=== PATIENT | male | born 1950 | race Caucasian/White ===

== ENCOUNTER 2019-01-10 00:42 | Inpatient (IN) | payer MEDICARE ==
[2019-01-10 02:04] LABS: ALT (SGPT) 23 U/L (8-55); AST (SGOT) 48 U/L (5-34); Albumin 2.9 g/dL (3.4-4.8); Alkaline Phosphatase 369 U/L (40-150); Anion Gap 12 mmol/L (10-20); BUN (Urea Nitrogen) 13 mg/dL (8.4-25.7); Bilirubin, Total 1.3 mg/dL (0.2-1.2); Calc. Creatinine Clearance 0 mL/min (70-130); Calcium 8.2 mg/dL (7.8-10.44); Carbon Dioxide 21 mmol/L (23-31); Chloride 101 mmol/L (98-107); Estimated GFR-MDRD Greater than 90; Globulin 2.5 g/dL (2.4-3.5); Glucose 126 mg/dL (80-115); Protein, Total 5.4 g/dL (5.8-8.1); Sodium 130 mmol/L (136-145)
[2019-01-10 02:16] LABS: #Lymphocytes 0.3 thou/uL (1.20-3.40); #Monocytes 0.2 thou/uL (0.11-0.59); #Neutrophils 1.1 thou/uL (1.40-6.50); %Basophils 1.3 % (0.0-1.0); %Eosinophils 0.2 % (0.0-10.0); %Lymphocytes 20.7 % (21.0-51.0); %Monocytes 9.2 % (0.0-10.0); %Neutrophils 68.6 % (42.0-75.0); Anisocytosis SLIGHT = 6-15 cells (100X) (0-5/hpf); Hemoglobin 10.4 g/dL (14.0-18.0); MDiff Complete? YES; Mean Corpuscular HGB CONC 32.5 g/dL (32.0-36.0); Mean Corpuscular Hemoglobin 27.1 pg (27.0-31.0); Mean Corpuscular Volume 83.5 fL (78.0-98.0); Mean Platelet Volume 9.9 fL (7.4-10.4); Platelet Count 54 thou/uL (130-400); Platelet Morphology Comment Appears Decreased; RBC Distribution Width 16.3 % (11.5-14.5); Red Blood Cell (RBC) Count 3.85 mill/uL (4.70-6.10); Reflex for Review?? YES; White Blood Cell (WBC) Count 1.6 thou/uL (4.8-10.8)
[2019-01-10 02:38] LABS: Bilirubin Negative (Negative); Blood, Urine Negative (Negative); Clarity CLEAR (Clear); Glucose, Urine (Dipstick) Negative (Negative); Leukocyte Negative (Negative); Nitrite Negative (Negative); Protein, Urine (Dipstick) Negative (Neg-Trace); Specific Gravity, Urine 1.009 (1.002-1.036)
[2019-01-10] MEDS ORDERED: Dextrose 50% Abboject 50 ML SYRINGE SLOW IVP PRN (03:06)
[2019-01-10] MEDS ORDERED: Ondansetron PF 4 MG/2 ML Vial IVP PRN ×2 (03:06→03:07)
[2019-01-10] MEDS ORDERED: Bisacodyl 5 MG TAB PO PRN (03:06)
[2019-01-10] MEDS ORDERED: Acetaminophen 325 MG TAB PO PRN (03:06)
[2019-01-10] MEDS ORDERED: Dextrose 5% in Water 1,000 ML IV PRN (03:06)
[2019-01-10] MEDS ORDERED: Senokot S 8.6-50 MG TAB PO PRN (03:06)
[2019-01-10] MEDS ORDERED: HYDROcodone/Acetaminophen 5/325 mg Tablet PO PRN (03:06)
[2019-01-10] MEDS ORDERED: hydrALAZINE 20 MG/ML VIAL SLOW IVP PRN (03:07)
[2019-01-10] MEDS ORDERED: Diabetic Tussin 200 MG/10 ML UDCUP PO PRN ×2 (03:07→08:53)
[2019-01-10] MEDS ORDERED: cloNIDine 0.1 MG TAB PO PRN (03:07)
[2019-01-10] MEDS ORDERED: Benzonatate 100 MG CAP PO PRN (03:07)
[2019-01-10] MEDS ORDERED: Sodium Chloride 0.65% Nasal 44 ML BOT EA NARE PRN (03:07)
[2019-01-10] MEDS ORDERED: Fentanyl 100 MCG/2 ML VIAL ONE ×2 (03:18→03:21)
[2019-01-10 04:37] VITALS: BMI 21.7
[2019-01-10] MEDS: Morphine 4 MG/ML VIAL SLOW IVP PRN ×4 (04:37→20:00)
--- NOTE | 2019-01-10 05:05 | HP ---
PRIMARY CARE PHYSICIAN: . CHIEF COMPLAINT: Generalized weakness and falls. HISTORY OF PRESENTING ILLNESS: Mr. Demarco is a 68-year-old male with past medical history of protein S deficiency, on anticoagulation with history of pulmonary embolism x5, and multiple arterial occlusion requiring multiple stents including 11 coronary stents and 29 stents elsewhere in the body including legs as well as history of hepatitis C, status post treatment: Presented to the emergency room with above-mentioned complaints. History is mainly obtained by the patient himself and also with the help of his present at the bedside. Case has been discussed with admitting ER physician, Dr. Joy. Mr. Demarco was admitted recently to the [facility] in [place] for 3 weeks and was discharged 3 or 4 days ago to home with Home Health. He was admitted there for generalized body aches and pains, abdominal swelling, weight loss, poor appetite, and worsening weakness for the last 2 or 3 months. He has not been feeling well for the last year or so. He follows up with Dr. Jolly at [facility] for his cardiac and arterial disease and recently has been feeling poorly. Over at [facility]: Extensive workup was instituted. I do not have access to the medical records, but the reports that the workup included the liver biopsy and a bone marrow biopsy. There was no specific diagnosis made as most of his tests came back okay. He was noticed to have pancytopenia over there, but so far the workup was unremarkable. He was given referral to Oncology in the outpatient setting and was discharged home. Shortly after getting home, he got more and more weak and started to fall. They were supposed to see Oncology, Dr. Thurston, tomorrow, but because of the falls and because of the 's inability to take care of him at home, she brought him here. He also has been having generalized pain once again, mostly in the upper and lower back, shoulders, and abdomen. Denies any diarrhea, nausea, or vomiting. He did have a fever of 102 this morning and reports on and off low- to high-grade fevers for the last few weeks. With regard to his anticoagulation: The reports that somebody told them that Eliquis that the patient was taking: Can cost some of his symptoms, so they contacted his doctor and it was recently changed to a different anticoagulant that she does not remember the name of. Now, he is being admitted for further evaluation and care. In the emergency room upon presentation, he was hemodynamically stable. His workup revealed pancytopenia with CBC showing WBCs of 1.6 with 68% neutrophils. Hemoglobin 10.4, platelet count of 54. These are all abnormal compared to his baseline done in our facility in 2014. His serum chemistry showed mild hyponatremia with a sodium of 130, total bilirubin of 1.3, AST of 48, and alkaline phosphatase of 369. His lactic acid, urinalysis are unremarkable. Chest x-ray and CT scan of the brain are unremarkable. PAST MEDICAL HISTORY: 1. Coronary artery disease requiring multiple stents by Dr. Jolly in the past. 2. Peripheral vascular disease requiring 11 stents in the legs. 3. History of COPD. 4. Pulmonary embolism x5, on chronic anticoagulation. 5. Dyslipidemia. 6. Osteoarthritis. 7. Hypertension. 8. Protein S deficiency. 9. History of splenic hematoma. 10. History of alcohol and drug abuse in the past. 11. Hepatitis C, status post treatment. PAST SURGICAL HISTORY: 1. L2-L4 fusion, 1972. 2. IVC filter placement, 2012. 3. Right femoral-popliteal bypass x2. 4. Right small toe amputation. 5. Hernia repair. 6. Coronary stenting x11, and rest of the stents placed in the legs. PSYCHIATRIC HISTORY: Anxiety. SOCIAL HISTORY: He is and lives at home with . No current alcohol or drug abuse. FAMILY HISTORY: No family history of any clotting or bleeding disorders or cancers. Brother with hypertension and diabetes. ALLERGIES: INCLUDES NITROGLYCERIN, ULTRAM, PERSANTINE, CHANTIX, AND LATEX ALLERGIES. HOME MEDICATIONS: As listed in the emergency room and further needs to be confirmed. 1. Guaifenesin p.r.n. 2. Folic acid 1 mg daily. 3. Megestrol 400 b.i.d. 4. MiraLAX p.r.n. daily. 5. Propranolol 10 mg three times a day. 6. Sertraline 50 mg daily. 7. Aldactone 25 mg daily. 8. Amlodipine 10 mg daily. 9. Plavix 75 mg daily. 10. Gabapentin 300 mg t.i.d. 11. Cozaar 50 mg daily. 12. Finasteride 5 mg daily. 13. Protonix 40 mg daily. 14. Tamsulosin 0.4 mg daily. CODE STATUS: Full code discussed in detail with the patient and his . REVIEW OF SYSTEMS: A 14-point review of system is done, it is negative except for those mentioned in the history and physical. All others are negative. LABORATORY DATA: CBC as per the HPI. Serum chemistry as per the HPI, otherwise unremarkable. Urinalysis does not have any evidence of any infection. EKG by my review shows normal sinus rhythm at 74 beats per minute with some PACs and aberrant conduction. No acute ST or T-wave changes. Chest x-ray by my review shows chronic right diaphragm changes without any acute infiltrate or edema. CT scan of the brain reportedly is unremarkable. Formal report is pending at this time. PHYSICAL EXAMINATION: VITAL SIGNS: Blood pressure 120/60, pulse of 77, respirations 18, temperature 98.5, saturating 97% on room air. GENERAL: He appears chronically ill looking and severely malnourished with poor muscle wasting. No acute distress. He appears somewhat pale and jaundiced. HEENT: Mucous membrane is dry. He has appearance of sore tongue and sore gums. He has no evidence of telangiectasias or petechiae on the oral or buccal mucosa. No oropharyngeal exudate. Temporal muscle wasting noted. Pupils are equal and reactive to light and accommodation. Extraocular movement intact. NECK: Supple without any lymphadenopathy, JVD, or bruit. CHEST: Clear to auscultation without any wheezing, rales, or rhonchi. HEART: Rhythm is regular without any murmurs, rubs, or gallops. ABDOMEN: Mildly distended and tender to palpation in the periumbilical region. No fluid wave is noticed. No spider nevi. No guarding, rebound, or rigidity. EXTREMITIES: Free of any cyanosis, clubbing, or edema. NEUROLOGIC: Nonfocal. SKIN: Free of any rashes or bruises except for some petechiae noted in his legs. PSYCHIATRIC: Normal affect. IMPRESSION AND PLAN: 1. Pancytopenia. The patient has had extensive workup done at [facility]. We will get his records from the [facility] in the morning. He is scheduled to see Oncology in the outpatient setting today and we will request consultation with Oncology in house. We will follow up on the results of the bone marrow biopsy done over at [facility]. At this time, etiology is unclear, but carcinoma versus bone marrow suppression from any of the medications he has been taking with his history of hepatitis C is not ruled out. We will hold his anticoagulation for now, but he remains at very high risk for clotting given his protein S deficiency. We will use subcu heparin for now with close monitoring of his platelets. Repeat labs in the morning. 2. Elevated liver enzymes. Once again, we will get his records from the [facility] as he has had good workup done over there including liver biopsy. Cirrhosis cannot be ruled out from hepatitis C. Also, liver carcinoma will need to be ruled out. I am not sure if that was also done over at [facility]. We will consult Oncology for further evaluation. 3. Generalized weakness and frequent falls. We will request OT and PT consultation. The patient will likely require placement prior to discharge home. 4. Severe protein calorie malnutrition. We will start him on Ensure three times a day and continue megestrol for now. We will also consult a dietitian for the same. 5. History of protein S deficiency. At this time, we will hold his anticoagulation until seen by Hematology Oncology. Use subcu heparin for DVT prophylaxis. Monitor platelets as they are running low. He is at very high risk of clotting as well as bleeding because of low platelets and protein S deficiencies. 6. History of coronary artery disease. Restart his home medications once confirmed. 7. History of peripheral arterial disease requiring multiple stents. This is likely secondary to protein S deficiency and arterial clotting. We will resume his aspirin and Plavix with caution for now. 8. Diabetes mellitus type 2. We will start him on insulin sliding scale with frequent Accu-Cheks. 9. History of hepatitis C, status post treatment. 10. Deep venous thrombosis and gastrointestinal prophylaxis and p.r.n. medications. DISPOSITION: Mr. Demarco is currently being admitted to Oncology floor for further workup of his pancytopenia and continued workup of his chronic mysterious illness from last 1 year. Estimated length of stay at this time is at least 2-3 midnights. Further management will depend upon his clinical course. Job ID: [id number]
[2019-01-10] MEDS: Sodium Chloride 0.9% 1,000 ML IV SCH ×2 (06:26→14:20)
[2019-01-10 06:41] LABS: Anion Gap 14 mmol/L (10-20); BUN (Urea Nitrogen) 11 mg/dL (8.4-25.7); Calc. Creatinine Clearance 97 mL/min (70-130); Calcium 8.3 mg/dL (7.8-10.44); Carbon Dioxide 20 mmol/L (23-31); Chloride 103 mmol/L (98-107); Estimated GFR-MDRD Greater than 90; Glucose 201 mg/dL (80-115); Potassium 3.5 mmol/L (3.5-5.1); Sodium 133 mmol/L (136-145)
--- NOTE | 2019-01-10 08:23 | CT ---
PRELIMINARY REPORT/[facility]/EMERGENCY AFTER HOURS PROCEDURE: Addendum created by Gerardo Urbina MD on 01/10/2019 4:04 AM Central Time ([place] & [place]) Findings discu ssed with ECTOR HOOKS MD at time of interpretation. Initial Report created on 01/10/2019 3:49 AM Ce ntral Time ([place] & [place]) EXAM: CT Head Without Contrast EXAM DATE/TIME: 01/10/2019 3:00 AM CLINICAL HISTORY: 68 years old, male; Injury or trauma; Fall; Initial encounter; Blunt trauma (contusions or hematomas) ; Patient HX: reports patient discharge from [facility] 2 days ago. She reports he has been admitted t here for the past 3 weeks due to abdominal distention, weakness and multiple falls. She reports awaiting biopsy results for possible cancer. She reports patient falling due to weakness twice today. PT reports right sided rib pain from fall. PT denies hitting head or head pain. reports fever 1 02 this evening TECHNIQUE: Imaging protocol: Axial computed tomography images of the head/brain without contrast. COMPARISON: No relevant prior studies available. FINDINGS: Brain: Mild generalized volume loss of the brain. No intracranial hemorrhage. Small area of decreased attenuation in the periphery of the left occipital lobe could be encephalomalacia/gliosis or a small area of nonspecific edema (subacute infarction or not visualized underlying mass lesion). Ventricles: Normal. No ventriculomegaly. Bones/joints: Unremarkable. No acute fracture. Sinuses: Dependent mucus in the sphenoid sinus. No sinus fluid levels. Mastoid air cells: Visualized mastoid air cells are unremarkable. No mastoid effusion. Soft tissues: Unremarkable. IMPRESSION: Small area of decreased attenuation in the periphery of the left occipital lobe could be encephalomal acia/gliosis or a small area of nonspecific edema (subacute infarction or not visualized underlying m ass lesion). Recommend comparison with any available prior studies. No intracranial hemorrhage. Thank you for allowing us to participate in the care of your patient. Dictated and Authenticated by: Gerardo Urbina MD 01/10/2019 3:49 AM Central Time ([place] & [place]) FINAL REPORT EMERGENCY AFTER HOURS CT BRAIN PERFORMED WITHOUT CONTRAST ENHANCEMENT: Date: 01/10/19 HISTORY: Fall with patient hitting head. Complaining of headache. COMPARISON: 02/16/12. FINDINGS: Ventricular and cisternal system shows fairly age-appropriate change. There are no signs of intracere bral hemorrhage or extra-axial fluid collections. There is a subtle area of decreased attenuation in the left occipital lobe, not seen on the prior exam. It could indicate encephalomalacia change. It co uld also possibly indicate small subacute infarct. There is no hemorrhage or mass effect. IMPRESSION: Subtle focus of decreased attenuation in the left occipital lobe, slightly different in appearance fr om the prior exam. I cannot exclude this representing a small subacute infarct, although I think it i s more likely to be more of a chronic process. No hemorrhage or mass effect. If indicated, MRI may be helpful. This report is in agreement with the preliminary report issued by [facility]. POS: [facility]
--- NOTE | 2019-01-10 08:23 | RAD ---
PORTABLE CHEST: Comparison: 02-16-12 History: Multiple falls with right rib pain. FINDINGS: Heart size is within normal limits. There are some arthrosclerotic changes of the aorta. Some parench ymal changes in the right base appear slightly more prominent than on that previous study suggesting some atelectasis versus scar versus minimal infiltrate. There are chronic appearing emphysematous typ e lung changes seen. I do not see any signs of pneumothorax or rib fractures. IMPRESSION: Increased parenchymal density in the right base which could represent atelectasis or scar or possibly some minimal infiltrate. Less likely, a pulmonary contusion. No rib fracture is seen. POS: [facility]
[2019-01-10] MEDS ORDERED: Polyethylene Glycol 3350 17 GM Packet PO PRN (08:53)
[2019-01-10] MEDS ORDERED: Heparin 5,000 UNITS/ML VIAL SC SCH (09:00)
--- NOTE | 2019-01-10 10:20 | PRG ---
DATE OF SERVICE: 01/10/2019 SUBJECTIVE: The patient reports he is having significant pain today, mostly in his back. I discussed this situation with the patient and his . He is obviously a highly complicated medical patient, who has just spent 3 weeks at the [facility]. The patient has had slow decline over the last year. His reports his appetite has been falling off and it has become substantially worse in the last 3 months. They report he has lost about 60 pounds during that time. The patient had an extensive workup at the [facility] and their thinking was that he likely had some sort of underlying malignancy that was not elucidated fully. The patient was ultimately discharged to have followup as an outpatient with Oncology today. However, they were told to watch for any fever at the time of discharge, and they reported that he had over 102 temperature and was so profoundly weak that he could not get up, so they brought him back to the hospital. The patient had some falls at home as well, had some discomfort in his right upper quadrant area, which he relates to the fall. PHYSICAL EXAMINATION: GENERAL: Currently, he is awake and alert. He appears uncomfortable. HEENT: His mouth is dry. HEART: Regular rate and rhythm. LUNGS: Clear. ABDOMEN: He does have some tenderness in the right upper quadrant area. His reports that his imaging at the [facility] did indicate some hepatosplenomegaly as well as some enlargement of the gallbladder. He has no peripheral edema, although they report that he has had severe peripheral edema recently. His labs were reviewed. He does have pancytopenia. They report that he had a bone marrow biopsy at the [facility] which revealed profound iron deficiency, although he is not significantly anemic and his MCV is actually within the normal range. At this point, attempting to get records from the [facility] as the patient obviously had an extensive evaluation over there. We will continue his home medications. However, we will hold the Savaysa. They report that he had previously been on Eliquis and this was discontinued because of the elevated liver enzymes and pancytopenia. He has only been on the Savaysa for a couple of days now. We will await consultation by Dr. Thurston. We will also ask Dr. Loja to see the patient given the overall picture and the fever in the setting of pancytopenia. It is possible this could represent some type of viral issue. The patient's history is complicated by severe systemic vascular disease and protein S deficiency. We will hold the Savaysa as well and continue with heparin for now, and await Oncology's input. In the meantime, we will continue with the Pain Management. Job ID: [id number]
[2019-01-10] MEDS: Heparin 5,000 UNITS/ML VIAL SC SCH ×3 (10:41→20:50)
[2019-01-10] MEDS: Famotidine 20 MG TAB PO SCH ×2 (10:42→20:51)
[2019-01-10] MEDS: Megestrol Acetate 800 MG/20 ML UDCUP PO SCH ×2 (11:28→20:52)
[2019-01-10] MEDS: Amlodipine 10 MG TAB PO SCH (11:30)
[2019-01-10] MEDS: Gabapentin 300 MG CAP PO SCH ×3 (11:30→20:51)
[2019-01-10] MEDS: Tamsulosin HCl 0.4 MG CAP PO SCH (11:30)
[2019-01-10] MEDS: Clopidogrel Bisulfate 75 MG TAB PO SCH (11:31)
[2019-01-10] MEDS: Finasteride 5 MG TAB PO SCH (11:31)
[2019-01-10] MEDS: Folic Acid 1 MG TAB PO SCH (11:31)
[2019-01-10] MEDS: Propranolol 10 MG TAB PO SCH ×3 (11:32→20:48)
[2019-01-10 11:53] LABS: Iron 30 ug/dL (65-175); Iron Binding Capacity, Total 229 mcg/dL (261-462)
[2019-01-10] MEDS ORDERED: ALPRAZolam 0.25 MG TAB PO SCH (12:00)
[2019-01-10] MEDS: Losartan 25 MG TAB PO SCH (12:06)
[2019-01-10] MEDS ORDERED: Morphine 2 MG/ML SYRINGE SLOW IVP SCH (12:30)
[2019-01-10] MEDS: HYDROcodone/Acetaminophen 10/325 mg Tablet PO PRN ×3 (13:30→21:32)
--- NOTE | 2019-01-10 13:47 | CON ---
DATE OF CONSULTATION: 01/10/2019 REASON FOR CONSULT: Pancytopenia. HISTORY OF PRESENT ILLNESS: Mr. Demarco is a 68-year-old gentleman with a complicated medical history including peripheral vascular disease, protein S deficiency, coronary artery disease, chronic obstructive pulmonary disease, diabetes, and hepatitis C. He was recently discharged from the [facility] after a 3- week stay, where he underwent workup for weight loss, weakness, and bone pain. He has seen multiple providers and gone under through several tests, which have been negative including negative SPEP HIV, negative HBV and HCV, negative AFP, normal immunoglobulin. He has had a splenomegaly. He has had a bone marrow, which was hypercellular and showed decreased to absent iron stores. There was no conclusive evidence for neoplastic leukocyte population. He underwent a liver biopsy, which showed no dysplasia or malignancy, showed grade 1 to 2 of four chronic hepatitis. He has had symptoms for over year, which have progressed over the last 5 weeks. He has been taking Eliquis for over a year now. It was recently stopped [address] Jolly and he was placed on Sevista. He was discharged from the [facility] on Monday and developed a fever of 102, so presented to our emergency room for further workup. His brain CT showed no acute findings. He has had a chest x-ray, which showed no acute changes. His white count this morning was 1.6 with 68% neutrophils and 20 % lymphocytes. Hemoglobin was 10.4 and platelet count was 54,000. Sodium was 130 , creatinine was 0.67. His bilirubin was mildly elevated and his protein was low. He was given pain medications, but still complains of bone pain including low back pain and leg. He complains of weakness, abdominal distention, and poor appetite. PAST MEDICAL HISTORY: 1. Peripheral vascular disease. 2. Coronary artery disease. 3. Myocardial infarction. 4. Carotid artery disease. 5. Transient ischemic attack. 6. Chronic obstructive pulmonary disease. 7. Diabetes. 8. BPH. 9. Protein S deficiency. 10. Chronic hepatitis C. 11. IV drug use. 12. Hepatosplenomegaly. 13. Chronic diastolic dysfunction. 14. History of pulmonary embolism with inferior vena cava placement. PAST SURGICAL HISTORY: 1. Hernia repair. 2. Bilateral femoral bypass. 3. Toe amputation. 4. Spinal fusion. 5. Cervical fusion. 6. Cardiac stents. 7. Multiple lower extremity stents. 8. Colonoscopy. ALLERGIES: NO KNOWN DRUG ALLERGIES. HOME MEDICATIONS: 1. Amlodipine 10 mg daily. 2. Plavix 75 mg daily. 3. Edoxoban 60 mg daily. 4. Proscar 5 mg daily. 5. Folic acid 1 mg daily. 6. Gabapentin 300 mg t.i.d. 7. Losartan 50 mg daily. 8. Megestrol 400 mg b.i.d. 9. Protonix daily. 10. MiraLAX daily. 11. Propranolol 10 mg t.i.d. 12. Zoloft 50 mg daily. 13. Aldactone 25 mg daily. 14. Flomax daily. FAMILY HISTORY: Father had lung cancer. Mother had heart failure. SOCIAL HISTORY: , lives with his spouse in [place]. History of IV drug use. REVIEW OF SYSTEMS: Negative except for noted in HPI. PHYSICAL EXAMINATION: VITAL SIGNS: Temperature is 99.4, pulse is 89, respiratory rate 20, BP is 152/ 69. He is 96% on 1 L. GENERAL: This is a chronically ill-appearing, cachectic male, in mild pain. HEENT: Normocephalic, atraumatic. Pupils are equal and reactive to light. NECK: Supple. CV: Regular rate and rhythm. LUNGS: Clear. ABDOMEN: Distended. Bowel sounds are positive. EXTREMITIES: No clubbing, cyanosis, or edema. SKIN: No rash. HEMATOLOGICAL: He has bruising in his upper extremities and chronic skin changes. NEUROLOGICAL: Nonfocal. PSYCH: The patient is alert, oriented and appropriate. PERTINENT LABS AND X-RAYS: Current WBCs 1.6, hemoglobin 10.4, hematocrit 32.1, and platelet count 54,000. Peripheral smear showed absolute lymphopenia and neutropenia. Chemistry; sodium 133, potassium 3.5, chloride 103, CO2 is 20, BUN is 11, creatinine 0.67, calcium is 8.3, bilirubin is 1.3, AST is 48, ALT is 23, alkaline phosphatase is 369. Serum total protein 5.4, albumin 2.9, globulin 2.5. Urine is negative. ASSESSMENT: 1. Pancytopenia. 2. Hepatosplenomegaly. 3. Protein S deficiency. 4. Failure to thrive with weight loss, weakness, and fever. 5. Negative bone marrow and liver biopsy. DISCUSSION: The patient is getting pain control, managed by [facility]. Dr. Loja has been consulted for his assistance with a diagnosis. There appears to be no evidence of hematological malignancy. To be completed, will check a NM bone scan. This was discussed with Dr. Dinero and Dr. Thurston, one of which will follow and see the patient later today. Further recommendations based on findings here in the hospital. Thank you for the consult. Job ID: [id number] [id number]
[2019-01-10] MEDS: Iron Sucrose Complex 500 MG in Sodium Chloride 0.9% 250 ML 250 ML IVPB SCH (18:28)
[2019-01-11] MEDS: HYDROcodone/Acetaminophen 10/325 mg Tablet PO PRN ×5 (01:33→22:16)
[2019-01-11] MEDS ORDERED: Mirtazapine 15 MG TAB PO SCH (02:00)
--- NOTE | 2019-01-11 02:18 | CON ---
DATE OF CONSULTATION: 01/10/2019 REASON FOR CONSULTATION: Pancytopenia, splenomegaly with chronic liver disease and fever. HISTORY OF PRESENT ILLNESS: A 68-year-old who has a history of multiple vascular occlusive episodes, which have required extraordinary number of vascular interventions with reportedly 25 stenting procedures done, I believe that was in the [facility] of various arterial systems including the peripheral vascular structures in the carotid area, mesenteric area and lower extremities as well as heart. The patient had been diagnosed with protein S deficiency. He also has a history of pulmonary embolism and had been on anticoagulation with Xarelto in addition to the revascularization procedures. He also has a history of a brief use of IV drugs when he was much younger and because of that, he developed chronic hepatitis C, which was treated successfully about 5-6 years ago with Epclusa. This current illness has developed in the past few months and he has developed splenomegaly, hepatomegaly with pain in the shoulders and back and intermittent temperature elevation. He was admitted in November 2018 with progressive weight loss, edema, anorexia, intermittent fever with wasting syndrome and hepatosplenomegaly with evidence of pancytopenia. The thrombocytopenia has developed over the past few months, I would say since the end of 2017. Likewise, the neutropenia has noticeably developed since the end of 2017. The workup at the [facility] has included various tests for chronic hepatitis, repeat hepatitis RNA PCR, which was negative, Ceruloplasmin, which was elevated and ferritin, which was within normal limits. Antimitochondrial antibodies and antinuclear antibodies, which were within normal limits as well. Ascites evaluation was not attempted, because the volume of ascites was low. The patient had a CT of abdomen and pelvis, which demonstrated hepatomegaly with mild periportal edema, contracted gallbladder, enlarged spleen and multiple vascular calcifications with endograft stents in multiple vascular structures. The patient had ultrasound of the lower extremities, which showed no evidence of DVT. A bone marrow biopsy demonstrated hypercellular marrow with some megaloblastoid changes in the erythroid series. No evidence of an abnormal neoplastic leukocyte population. Liver biopsy demonstrated chronic hepatitis with grade 1-2 fibrosis, no malignancy and some ductal injury present. There were some neutrophils and histiocytes and occasional plasmacytes, but not much in terms of lymphocyte infiltration. In that regard, it was not typical of a classic hepatitis C histologic appearance. Again, it was not typical of a classic hepatitis C histologic appearance. The patient had blood cultures submitted with 2 negative blood culture sets. A bone marrow culture showed no growth in 9-14 days and mycobacterial culture from the bone marrow aspirate with no acid-fast bacilli seen and the specimen culture is still being processed. After discharge station persisted with feeling unwell and then he got more weak and started falling repeatedly with weakness in lower extremities, pain in the shoulders and low back and he did have a temperature of 102 the morning of admission. No headaches. No visual symptoms. No sore throat, odynophagia, dysphagia, no chest pain. He does have pain in the lower back area, which is quite intense. He denies genitourinary symptoms. He does have pain in the epigastrium, which actually has improved compared to the previous symptoms. He has pain in the lower extremities mostly in the knees. PAST MEDICAL HISTORY: Includes peripheral vascular disease with multiple stents in carotids, mesenteric arteries, kidneys and lower extremities as well as coronary angioplasty and stenting, history of quit smoking, COPD, pulmonary embolism, protein S deficiency, on chronic Xarelto, previous history of IV drug use in remission. This was a brief period of time when he was pretty young, chronic hepatitis C, which was treated successfully about 5 to 6 years ago. He had recent procedures done at [facility] dictated as below. PAST SURGICAL HISTORY: Includes L2-L4 fusion in 1972, IVC filter placement, femoral-popliteal bypass, small toe amputation, right foot, hernia repair, coronary artery stenting multiple times. SOCIAL HISTORY: He used to work as an controls project engineer and is . He has been abstinent from alcoholic beverages for many years and no history of drug use for many decades. FAMILY HISTORY: Noncontributory. HOME MEDICATIONS: Include: 1. Folic acid. 2. Megace. 3. MiraLax. 4. Inderal. 5. Zoloft. 6. Aldactone. 7. Norvasc. 8. Cozaar. 9. Protonix. 10. Tamsulosin. ALLERGIES: NITROGLYCERIN, ULTRAM,CHANTIX AND LATEX. PHYSICAL EXAMINATION: VITAL SIGNS: T-max 99.4 after admission, BP 108/59, pulse 73, respirations 18, O2 saturation 97%. SKIN: Shows bruising with laceration in the right elbow and right arm. No other significant skin lesions. : Peripheral IV access and he is voiding spontaneously, does not have a Espinal catheter in place. NECK: There is no lymphadenopathy. HEENT: There is evidence of temporal wasting. The ocular movements are conjugate. Sclerae white. Pupils are equal. Nasal passages patent. Ear exam normal. Oral cavity is moist with no remaining [place] teeth. NECK: Supple without jugular venous distention. LUNGS: Symmetric air entry. Faint basilar crackles. CARDIAC: S1, S2. Soft aortic murmur. Regular rate. ABDOMEN: Mildly distended. No obvious ascites noted. There is evidence of hepatomegaly with liver about 6 cm below the right costal margin and splenomegaly as well. Bladder is mildly distended. GENITOURINARY: Normal. EXTREMITIES: He does have tenderness on palpation of the shoulders and lower back and knees, but no evidence of inflammatory changes in those joints. Pulses are diminished in dorsalis pedis, but palpable. Cap refill is 2 seconds. Plantar responses are flexor. He moves his extremities, but it is diffusely weak. He is oriented, follows commands, appears chronically ill. Speech pattern appears to be normal LABORATORY DATA: White cell count 1.6, hemoglobin 10.4, MCV 83, platelets 54, 000 with 68% neutrophils, 20% lymphocytes, and chemistry with a sodium of 130, creatinine 0.67, carbon dioxide 21, glucose 126. Iron 30, TIBC 29, saturation 13. AST 48, ALT 23, alkaline phosphatase 269, albumin 2.9. Ferritin was 153, calcium 8.2. Lactic acid 1.1. Urinalysis was normal. Influenza was negative. Urine culture no growth at 12 hours. IMAGING: Brain CT with small area of decreased attenuation, occipital lobe, probably encephalomalacia and a chest x-ray with increased parenchymal opacity in the right base. ASSESSMENT: 1. History of peripheral vascular disease with multiple angioplasty procedures with stenting in pretty much all the vascular structures in the main wound areas for a total of about 25 stents placed in the past. 2. Protein S deficiency and prior pulmonary embolism and the other issues related to above on Xarelto. 3. Chronic hepatitis C, which was treated successfully about 5 to 6 years ago with documented resolution of viremia recently. 4. Osyhwpyb-rb-wyhakof onset of weight loss associated with abnormal liver function tests, hypoalbuminemia, hepatosplenomegaly and pancytopenia with fever. 5. 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 6. Liver histology consistent with a form of chronic hepatitis, not consistent with hepatitis C, but an alternate diagnosis. DISCUSSION: Differential diagnosis includes infectious disorders associated with chronic hepatitis C including acute fever, histoplasmosis brucellosis, Jose Bar virus infection with reactivation, Bartonella henselae infection versus noninfectious causes of granulomatous liver disease such as sarcoidosis, disseminated mycobacterial disease appears to be less likely in view of the negative bone marrow microbiology workup thus far as well as a negative QuantiFERON. Metabolic causes of chronic hepatitis as well as autoimmune hepatitis and primary biliary cholangitis have been ruled out by the workup done at the [facility]. Malignancies appear to be unlikely, the sample was almost 2 cm in size from the core biopsy done at the [facility], so I think we have good sample size for ruling out a neoplastic process. Hemophagocytic syndrome is not ruled out. We will submit serologies for the above-mentioned etiologies and wait for the review of the pathology at the tertiary reference lab where the specimen was submitted by the [facility] for a second opinion. Will also submit a sample of plasma for the Karius test which might give us a diagnosis if this represents an infective process. Job ID: [id number] MTDD
[2019-01-11] MEDS: Morphine 4 MG/ML VIAL SLOW IVP PRN ×6 (04:07→23:31)
[2019-01-11] MEDS: Sodium Chloride 0.9% 1,000 ML IV SCH ×2 (06:07→21:31)
[2019-01-11] MEDS: Amlodipine 10 MG TAB PO SCH (09:43)
[2019-01-11] MEDS: Clopidogrel Bisulfate 75 MG TAB PO SCH (09:43)
[2019-01-11] MEDS: Spironolactone 25 MG TAB PO SCH (09:43)
[2019-01-11] MEDS: Finasteride 5 MG TAB PO SCH (09:44)
[2019-01-11] MEDS: Famotidine 20 MG TAB PO SCH ×2 (09:44→21:35)
[2019-01-11] MEDS: Folic Acid 1 MG TAB PO SCH (09:44)
[2019-01-11] MEDS: Megestrol Acetate 800 MG/20 ML UDCUP PO SCH ×2 (09:45→21:35)
[2019-01-11] MEDS: Gabapentin 300 MG CAP PO SCH ×3 (09:45→21:35)
[2019-01-11] MEDS: Heparin 5,000 UNITS/ML VIAL SC SCH (09:45)
[2019-01-11] MEDS: Losartan 25 MG TAB PO SCH (09:45)
[2019-01-11] MEDS: Propranolol 10 MG TAB PO SCH ×3 (09:46→21:35)
[2019-01-11] MEDS: Tamsulosin HCl 0.4 MG CAP PO SCH (09:47)
[2019-01-11] MEDS ORDERED: Apixaban 5 MG TAB PO SCH (11:00)
--- NOTE | 2019-01-11 12:10 | PRG ---
DATE OF SERVICE: 01/11/2019 SUBJECTIVE: The patient is doing okay. He is actually eating pretty well and taking Boost supplements or Ensure supplements, and he is having fairly good and normal bowel movements. His pain is fairly well controlled, although he feels there were times, where he may need more pain medications. OBJECTIVE: VITAL SIGNS: Temperature 98.1, T-max 99.1, pulse 74, respirations 18, O2 saturations 92% on room air and 99% on 1 L nasal cannula, BP 136/68. GENERAL APPEARANCE: Age-appropriate male. He is very cachectic with significant muscle wasting. He is awake and alert, but a little lethargic. HEENT: Pupils are reactive. He has no OP lesions. Still has dry oral mucosa. HEART: Regular rate and rhythm without murmurs, gallops, or rubs. LUNGS: Diminished with some scattered minimal rales, but fair air exchange. ABDOMEN: Soft, nondistended. Positive bowel sounds. No masses. No organomegaly. He has a little tenderness in the right upper quadrant, this is the area where he injured himself when he fell. I could not palpate liver or spleen. NEUROLOGIC: Appears to be intact. LABORATORY DATA: Iron count was 30, TIBC was 229, percent saturation 13%, ferritin 153.56. B12 was 482, folate was 12. Blood cultures still negative. IMPRESSION AND PLAN: 1. Failure to thrive. This patient is having significant decline in his functional status, strength, and weight, appears to be due to whatever is going on with the liver and spleen, continuing to evaluate that. 2. Hepatitis. The patient appears to have some evidence of hepatic inflammation on his prior biopsy, which seems to be the only thing of significance through an extensive workup. His liver biopsy was consistent with inflammation, but otherwise the report was fairly bland, and has been referred to a tertiary center for further evaluation. Dr. Loja has been consulted and has ordered some serologies for other potential infectious etiologies, though one concerns still outstanding is the fact his MADAY level was elevated and this may represent some extrapulmonary sarcoidosis. Discussed the case with GI, who followed him at the [facility], Dr. Villarreal. I have also discussed the case with Dr. Loja, who also followed him at the [facility], and I have discussed the case with Vanessa and Dr. Harrington with the Oncology Service. At this point, awaiting serologies and biopsy reports. We will consider the possibility of some empiric steroids. 3. Protein S deficiency. The patient had previously been switched from Eliquis to edoxaban, which is not available here. The concern was that it could be contributory to his symptomatology; however, at this point, it seems less likely. We will start him back on Eliquis. I discussed this with the patient's . 4. Pancytopenia. The patient had a bone marrow biopsy with trilineage hematopoiesis, concerning for possibility of sequestration and less likely peripheral cytologic destruction. 5. Severe peripheral vascular disease. The has corrected me to inform me that he actually has 40 stents as well as bypass surgeries throughout his entire vascular system. 6. Severe iron deficiency noted in the blood work, but also there were no iron stores noted at all on the bone marrow biopsy. He has received IV iron supplementation. 7. Disposition. I had a long talk with the patient and then again with his . Ultimately, he does appear to be failing to thrive significantly. We will have Palliative Care see the patient. He is currently still full code. Job ID: [id number]
--- NOTE | 2019-01-11 12:25 | NM ---
NM Bone Scan STANDARD: 01/11/2019 12:59 PM CLINICAL INDICATION: Prostate cancer. COMPARISON: None. RADIOPHARMACEUTICAL: 25 mCi Tc 99M MDP FINDINGS: Bone lesions: Punctate focus of increased radiotracer activity localizes to the posterior left ninth rib Other findings: Degenerative activity is present at the axial and appendicular skeleton. IMPRESSION: Nonspecific solitary focus of increased radiotracer activity localizing the posterior left ninth rib. Correlate with radiographs.
[2019-01-11 14:21] LABS: Reference Lab Name KARIUS
[2019-01-11 14:22] LABS: Ref Lab Test Ordered KARIUS TEST
[2019-01-11] MEDS: predniSONE 20 MG TAB PO SCH ×2 (16:09→21:35)
[2019-01-11 16:32] LABS: Reference Lab Name LABCORP
[2019-01-11 16:33] LABS: Ref Lab Test Ordered C BURNETTI IGG/IGM
[2019-01-11] MEDS: Iron Sucrose Complex 500 MG in Sodium Chloride 0.9% 250 ML 250 ML IVPB SCH (17:49)
[2019-01-11] MEDS: Doxycycline 100 MG CAP PO SCH (21:35)
[2019-01-11] MEDS: Apixaban 5 MG TAB PO SCH (21:39)
[2019-01-11] MEDS: HumaLOG 300 UNITS/3 ML VIAL SC PRN (23:01)
[2019-01-12] MEDS: HYDROcodone/Acetaminophen 10/325 mg Tablet PO PRN ×6 (02:35→22:53)
[2019-01-12] MEDS: Morphine 4 MG/ML VIAL SLOW IVP PRN ×6 (04:05→23:54)
[2019-01-12] MEDS: Amlodipine 10 MG TAB PO SCH (08:04)
[2019-01-12] MEDS: Spironolactone 25 MG TAB PO SCH (08:04)
[2019-01-12] MEDS: Famotidine 20 MG TAB PO SCH ×2 (08:05→20:05)
[2019-01-12] MEDS: Clopidogrel Bisulfate 75 MG TAB PO SCH (08:05)
[2019-01-12] MEDS: Apixaban 5 MG TAB PO SCH ×2 (08:05→20:04)
[2019-01-12] MEDS: Doxycycline 100 MG CAP PO SCH ×2 (08:05→20:04)
[2019-01-12] MEDS: Gabapentin 300 MG CAP PO SCH ×3 (08:06→20:04)
[2019-01-12] MEDS: Folic Acid 1 MG TAB PO SCH (08:06)
[2019-01-12] MEDS: Losartan 25 MG TAB PO SCH (08:06)
[2019-01-12] MEDS: Finasteride 5 MG TAB PO SCH (08:07)
[2019-01-12] MEDS: Megestrol Acetate 800 MG/20 ML UDCUP PO SCH ×2 (08:07→20:05)
[2019-01-12] MEDS: predniSONE 20 MG TAB PO SCH ×3 (08:08→20:05)
[2019-01-12] MEDS: Propranolol 10 MG TAB PO SCH ×3 (08:08→20:04)
[2019-01-12] MEDS: Tamsulosin HCl 0.4 MG CAP PO SCH (08:08)
[2019-01-12 09:35] LABS: #Lymphocytes 0.4 thou/uL (1.20-3.40); #Monocytes 0.1 thou/uL (0.11-0.59); #Neutrophils 1.1 thou/uL (1.40-6.50); %Eosinophils 0.5 % (0.0-10.0); %Lymphocytes 21.7 % (21.0-51.0); %Monocytes 8.3 % (0.0-10.0); %Neutrophils 69.6 % (42.0-75.0); Hemoglobin 11.2 g/dL (14.0-18.0); Mean Corpuscular Volume 84.2 fL (78.0-98.0); Mean Platelet Volume 9.5 fL (7.4-10.4); Platelet Count 61 thou/uL (130-400); RBC Distribution Width 16.4 % (11.5-14.5); Red Blood Cell (RBC) Count 4.16 mill/uL (4.70-6.10); White Blood Cell (WBC) Count 1.6 thou/uL (4.8-10.8)
[2019-01-12 09:53] LABS: ALT (SGPT) 19 U/L (8-55); AST (SGOT) 34 U/L (5-34); Albumin 2.8 g/dL (3.4-4.8); Alkaline Phosphatase 342 U/L (40-150); Anion Gap 11 mmol/L (10-20); BUN (Urea Nitrogen) 13 mg/dL (8.4-25.7); Bilirubin, Total 1.1 mg/dL (0.2-1.2); Calc. Creatinine Clearance 110 mL/min (70-130); Calcium 8.5 mg/dL (7.8-10.44); Carbon Dioxide 21 mmol/L (23-31); Chloride 109 mmol/L (98-107); Estimated GFR-MDRD Greater than 90; Globulin 2.7 g/dL (2.4-3.5); Glucose 148 mg/dL (80-115); Potassium 4.1 mmol/L (3.5-5.1); Protein, Total 5.5 g/dL (5.8-8.1); Sodium 137 mmol/L (136-145)
[2019-01-12] MEDS: Sodium Chloride 0.9% 1,000 ML IV SCH ×2 (11:21→23:56)
[2019-01-12] MEDS: HumaLOG 300 UNITS/3 ML VIAL SC PRN ×2 (12:06→16:00)
--- NOTE | 2019-01-12 13:08 | PRG ---
DATE OF SERVICE: 01/12/2019 SUBJECTIVE: The patient reports he is actually feeling somewhat better today. He has good appetite and drinking Ensure supplements as well. OBJECTIVE: VITAL SIGNS: Temperature is 97.9, pulse 75, respirations 16, O2 saturation 95% on room air, BP is 128/72. GENERAL APPEARANCE: Age-appropriate male, in no distress. He is generally cachectic. He is awake and alert. HEART: Regular rate and rhythm without murmurs. LUNGS: Clear bilaterally. ABDOMEN: Soft, nontender, nondistended with positive bowel sounds. EXTREMITIES: Have some sarcopenia. No edema, cyanosis, or clubbing. SKIN: He has some chronic discoloration of the anterior right calf area, some superficial actinic keratosis type lesions. MUSCULOSKELETAL: The patient has no significant tenderness in the posterior 9th rib area. He does a little bit lower, which he attributes to one of his several falls before he came into the hospital. LABORATORY DATA: White count 1.6, hemoglobin 11.2, platelets 61. Sodium 137, potassium 4.1, chloride 109, CO2 is 21, BUN 13, creatinine 0.59. Alkaline phosphatase 342, albumin 2.8, total protein 5.5. Blood cultures and urine cultures remain negative. IMPRESSION AND PLAN: 1. Generalized failure to thrive. This patient appears to have some hepatosplenomegaly with evidence of hepatitis as well as pancytopenia with generalized weight loss and weakness. Etiology at this point remains elusive, appears to have some relation to whatever inflammatory processes is going on with the liver. 2. Hepatitis. The patient has a history of hep C, which was treated, resolved and had confirmation with viral titers that this is resolved. He did have a liver biopsy, which showed some persistent inflammation, but those biopsies been sent to a tertiary center. We will follow up on those. It is not possible this could have some relation to extrapulmonary sarcoidosis given an elevated MADAY level. To that end, the patient was started on steroids yesterday. He is feeling little better today, which I suspect is simply the positive side effects of the steroids and not necessarily representing a substantial change in his overall course. Dr. Loja and Oncology were on board initiating the steroids. We will cover with doxycycline 100 b.i.d. per the recommendation of Dr. Loja since we do have few serology still pending. 3. Protein S deficiency, continuing with the Eliquis in spite of his thrombocytopenia. 4. Pancytopenia. The patient had a bone marrow biopsy which showed trilineage hematopoiesis, possibly some sequestrations with his hepatosplenomegaly. 5. Severe peripheral vascular disease. Continuing with the Plavix and anti- platelet regimen in spite of also being on Eliquis and thrombocytopenia. 6. Severe iron deficiency. The patient's bone marrow biopsy showed basically no iron stores. He has received iron supplementation. 7. Disposition. The patient is feeling little better with the steroids. Anticipate continuing to keep him here on the steroids until we can get some follow up on the tertiary centers report on the liver biopsy or the patient is substantially improved. He has been sent home a couple of times previously from the [facility] and has not done well because of severe profound weakness as he continues to eat and drink and be on the steroids, hopeful that some of this may improve. Job ID: [id number] MTDD
--- NOTE | 2019-01-12 18:28 | PRG ---
DATE OF SERVICE: 01/12/2019 SUBJECTIVE: Appears more energetic today, more alert. He ate well. He felt well yesterday as well. No headaches. No visual symptoms, sore throat, odynophagia , or dysphagia. No cough. Some abdominal pain, but less than before. No joint symptoms. Some pain in the back of the shoulder and neck area. VITAL SIGNS: T-max 98.3, blood pressure 125/64, pulse 76, respirations 16 to 20 , and O2 saturation 97%. HEENT: Ocular movements conjugate. Appears quite alert. Speech is normal. LUNGS: Clear. HEART: S1, S2. Regular rate. ABDOMEN: Less tender. EXTREMITIES: Moves all extremities equally. LABORATORY DATA: White cell count is 1.6, hemoglobin 11.2, platelets 61,000, 69 % neutrophils. Creatinine 0.59, alkaline phosphatase 342. Transaminases and bilirubin normal. Albumin 2.8. The miscellaneous tests ordered are pending. Blood cultures are no growth at 48 hours. Bone scan was not particularly remarkable. ASSESSMENT AND DISCUSSION: History of peripheral vascular disease with various angioplasty procedures, protein S deficiency, chronic hepatitis C which has been cured, chronic weight loss with evidence of chronic hepatitis with histiocytes infiltrating the hepatic structures, but not much in terms of lymphocytes. Bone marrow biopsy with trilineage hematopoiesis and increase in cell production consistent with peripheral destruction of red cells, white cells, and platelets. Again, differential diagnosis includes certain types of infectious disorders associated with chronic hepatitis including Q fever, Jose-Soto virus reactivation with hemophagocytic syndrome, brucellosis, histoplasmosis, and Bartonella henselae. Noninfectious disorder such as sarcoidosis has been considered as well. Dr. Bear has suggested starting corticosteroids, which I think is a reasonable intervention at this point. Doxycycline has been started as well since all the samples have been submitted. Waiting on the miscellaneous tests to be received for us to plan any further intervention. Job ID: [id number] MTDD
[2019-01-13] MEDS: HYDROcodone/Acetaminophen 10/325 mg Tablet PO PRN ×6 (02:57→23:03)
[2019-01-13] MEDS: Morphine 4 MG/ML VIAL SLOW IVP PRN ×5 (04:07→20:16)
[2019-01-13] MEDS: Apixaban 5 MG TAB PO SCH ×2 (08:10→20:06)
[2019-01-13] MEDS: Losartan 25 MG TAB PO SCH (08:10)
[2019-01-13] MEDS: Spironolactone 25 MG TAB PO SCH (08:10)
[2019-01-13] MEDS: Tamsulosin HCl 0.4 MG CAP PO SCH (08:11)
[2019-01-13] MEDS: Amlodipine 10 MG TAB PO SCH (08:11)
[2019-01-13] MEDS: Propranolol 10 MG TAB PO SCH ×3 (08:11→20:06)
[2019-01-13] MEDS: Famotidine 20 MG TAB PO SCH ×2 (08:11→20:06)
[2019-01-13] MEDS: Folic Acid 1 MG TAB PO SCH (08:11)
[2019-01-13] MEDS: Finasteride 5 MG TAB PO SCH (08:12)
[2019-01-13] MEDS: Clopidogrel Bisulfate 75 MG TAB PO SCH (08:12)
[2019-01-13] MEDS: Gabapentin 300 MG CAP PO SCH ×3 (08:12→20:06)
[2019-01-13] MEDS: Megestrol Acetate 800 MG/20 ML UDCUP PO SCH ×2 (08:12→20:07)
[2019-01-13] MEDS: predniSONE 20 MG TAB PO SCH (08:12)
[2019-01-13] MEDS: Doxycycline 100 MG CAP PO SCH (08:13)
[2019-01-13] MEDS: Sodium Chloride 0.9% 1,000 ML IV SCH (12:07)
--- NOTE | 2019-01-13 12:35 | PDOC.PN ---
- Subjective Encounter Start Date: 01/13/19 Encounter Start Time: 12:42 Subjective: Pt is seen and examined for Pancytopenia, PVD S/p Stents -: Feling Fine no new complains - Objective Resuscitation Status - Order Detail: 01/11/19 10:56 Resuscitation Status Routine Resuscitation Status: FULL: Full Resuscitation MAR Reviewed: Yes Vital Signs & Weight: Vital Signs (12 hours) Temp Pulse Resp BP BP Pulse Ox 01/13/19 09:10 97.3 F L 69 18 159/77 H 97 01/13/19 08:11 76 170/83 H 01/13/19 05:10 94 L Weight Admit Weight 147 lb 4 oz Weight 147 lb 4 oz I&O: 01/12/19 01/13/19 01/14/19 06:59 06:59 06:59 Intake Total 2520 1650 480 Output Total 1295 1260 Balance 1225 390 480 Result Diagrams: 01/12/19 09:18 01/12/19 09:18 Additional Labs: Accuchecks 01/13/19 01/12/19 01/12/19 05:40 20:15 15:58 POC Glucose 122 H 163 H 169 H 01/12/19 11:52 POC Glucose 219 H Phys Exam - Physical Examination HEENT: PERRLA Neck: no nodes, no JVD, supple, full ROM Respiratory: no wheezing, no rales, no rhonchi, clear to auscultation bilateral Cardiovascular: RRR, no significant murmur, no rub, gallop Gastrointestinal: soft, non-tender, no distention, positive bowel sounds Musculoskeletal: no edema Neurological: non-focal Lymphatic: no nodes Dx/Plan - Plan Continue Current management -: Awaiting Liver Biopsy, Bone Marrow Normal -: PAD S/p Stent continue Plavix -: Failure to Thrive and weight loss, Steroids Started as per Oncoogy * . Review of Systems - Review of Systems Constitutional: chills Eyes: negative: Pain, Vision Change, Conjunctivae Inflammation, Eyelid Inflammation, Redness, Other Respiratory: negative: Cough, Dry, Shortness of Breath, Hemoptysis, SOB with Excertion, Pleuritic Pain, Sputum, Wheezing Cardiovascular: negative: chest pain, palpitations, orthopnea, paroxysmal nocturnal dyspnea, edema, light headedness, other Gastrointestinal: negative: Nausea, Vomiting, Abdominal Pain, Diarrhea, Constipation, Melena, Hematochezia, Other Genitourinary: negative: Dysuria, Frequency, Incontinence, Hematuria, Retention , Other Musculoskeletal: negative: Neck Pain, Shoulder Pain, Arm Pain, Back Pain, Hand Pain, Leg Pain, Foot Pain, Other Skin: Bruising - Medications/Allergies Allergies/Adverse Reactions: Allergies Allergy/AdvReac Type Severity Reaction Status Date / Time No Known Drug Allergies Allergy Verified 01/10/19 05:28 Medications: Current Medications Acetaminophen (Tylenol) 650 mg PO Q4H PRN PRN Reason: Headache/Fever/Mild Pain (1-3) Last Admin: 01/11/19 16:11 Dose: 650 mg Hydrocodone Bitart/Acetaminophen ([place] 10/325) 1 tab PO Q4H PRN PRN Reason: Moderate Pain (4-6) Last Admin: 01/12/19 15:01 Dose: 1 tab Hydrocodone Bitart/Acetaminophen ([place] 10/325) 2 tab PO Q4H PRN PRN Reason: Severe Pain (7-10) Last Admin: 01/13/19 10:49 Dose: 2 tab Albuterol/Ipratropium (Duoneb) 3 ml NEB [id number] PRN PRN Reason: SOB &/or Wheezing Last Admin: 01/10/19 21:19 Dose: 3 ml Amlodipine Besylate (Norvasc) 10 mg PO DAILY [facility] Last Admin: 01/13/19 08:11 Dose: 10 mg Apixaban (Eliquis) 5 mg PO BID [facility] Last Admin: 01/13/19 08:10 Dose: 5 mg Benzonatate (Tessalon) 100 mg PO Q6H PRN PRN Reason: Cough Clonidine (Catapres) 0.1 mg PO Q4H PRN PRN Reason: SBP >160 ____ Clopidogrel Bisulfate (Plavix) 75 mg PO DAILY [facility] Last Admin: 01/13/19 08:12 Dose: 75 mg Dextrose/Water (Dextrose 50%) 25 gm SLOW IVP PRN PRN PRN Reason: Hypoglycemia Doxycycline Hyclate (Vibramycin) 100 mg PO BID [facility] Last Admin: 01/13/19 08:13 Dose: 100 mg Famotidine (Pepcid) 20 mg PO BID [facility] Last Admin: 01/13/19 08:11 Dose: 20 mg Finasteride (Proscar) 5 mg PO DAILY [facility] Last Admin: 01/13/19 08:12 Dose: 5 mg Folic Acid (Folvite) 1 mg PO DAILY [facility] Last Admin: 01/13/19 08:11 Dose: 1 mg Gabapentin (Neurontin) 300 mg PO TID [facility] Last Admin: 01/13/19 08:12 Dose: 300 mg Glucagon (Glucagon) 1 mg IM PRN PRN PRN Reason: Hypoglycemia Guaifenesin (Robitussin Sf) 200 mg PO TID PRN PRN Reason: Cough Hydralazine HCl (Apresoline) 10 mg SLOW IVP Q4H PRN PRN Reason: SBP > 170 and HR < 70 Sodium Chloride (Normal Saline 0.9%) 1,000 mls @ 75 mls/hr IV .[id number] [facility] Last Admin: 01/13/19 12:07 Dose: 1,000 mls Dextrose/Water (D5w) 1,000 mls @ 0 mls/hr IV .Q0M PRN PRN Reason: Hypoglycemia Insulin Human Lispro (Humalog) 0 units SC .MILD SLIDING SCALE PRN PRN Reason: Mild Correctional Scale Last Admin: 01/12/19 16:00 Dose: 2 unit Insulin Human Lispro (Humalog) 0 units SC .BEDTIME SLIDING SC PRN PRN Reason: Bedtime Correctional Scale Last Admin: 01/11/19 23:01 Dose: 3 unit Losartan Potassium (Cozaar) 50 mg PO DAILY [facility] Last Admin: 01/13/19 08:10 Dose: 50 mg Megestrol Acetate (Megace) 400 mg PO BID [facility] Last Admin: 01/13/19 08:12 Dose: 400 mg Morphine Sulfate (Morphine) 4 mg SLOW IVP Q4H PRN PRN Reason: Breakthrough Pain Last Admin: 01/13/19 12:02 Dose: 4 mg Ondansetron HCl (Zofran) 4 mg IVP Q6H PRN PRN Reason: Nausea/Vomiting Pantoprazole Sodium (Protonix) 40 mg PO DAILY [facility] Last Admin: 01/13/19 08:12 Dose: 40 mg Polyethylene Glycol (Miralax) 17 gm PO DAILY PRN PRN Reason: Constipation Prednisone (Prednisone) 20 mg PO TID [facility] Last Admin: 01/13/19 08:12 Dose: 20 mg Propranolol HCl (Inderal) 10 mg PO TID [facility] Last Admin: 01/13/19 08:11 Dose: 10 mg Sertraline HCl (Zoloft) 50 mg PO DAILY [facility] Last Admin: 01/13/19 08:12 Dose: 50 mg Sodium Chloride ([place] Nasal [place] 0.65%) 0 ml EA NARE QIDPRN PRN PRN Reason: Nasal Congestion Sodium Chloride (Flush - Normal Saline) 10 ml IVF Q12HR [facility] Last Admin: 01/13/19 08:13 Dose: 10 ml Sodium Chloride (Flush - Normal Saline) 10 ml IVF PRN PRN PRN Reason: Saline Flush Last Admin: 01/11/19 04:08 Dose: 10 ml Spironolactone (Aldactone) 25 mg PO QAM-WM [facility] Last Admin: 01/13/19 08:10 Dose: 25 mg Tamsulosin HCl (Flomax) 0.4 mg PO DAILY [facility] Last Admin: 01/13/19 08:11 Dose: 0.4 mg
[2019-01-13] MEDS ORDERED: Dextrose 5% in Water 10 ML IVPB PRN (13:43)
[2019-01-13] MEDS: Admixture Fee 1 EACH in Dextrose 5% in Water 10 ML FS SCH ×2 (14:48→15:57)
[2019-01-13] MEDS: AMBISOME IVPB SCH (14:51)
[2019-01-13] MEDS: WATER IVPB SCH (14:51)
[2019-01-13] MEDS: DEXTROSE 5% IVPB SCH (14:51)
--- NOTE | 2019-01-13 16:14 | PRG ---
DATE OF SERVICE: 01/13/2019 SUBJECTIVE: Mr. Demarco is about the same. The steroid seems to have given him some increase in energy level, but this is short-lived. Usually in the evenings , he feels back to baseline. No headaches. No significant cough or chest pain. Some abdominal tenderness in the right upper quadrant. No neurological symptoms. LABORATORY DATA: White cell count 1.6, hemoglobin 11.2, platelets 61 with a normal differential. The Karius test showed Jose-Soto virus in low titer but was a clear signal for Histoplasma capsulatum. The histoplasma antigen in urine is pending at this point in time. ASSESSMENT AND DISCUSSION: Peripheral vascular disease associated with protein S deficiency, chronic hepatitis C, now with chronic weight loss with evidence of chronic hepatitis with histiocytic infiltrates and bone marrow biopsy with trilineage hematopoiesis and now this positive test for Histoplasma capsulatum DNA in plasma. We will start AmBisome and wait for histoplasma antigen. 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 Job ID: [id number] [facility]
[2019-01-13] MEDS: HumaLOG 300 UNITS/3 ML VIAL SC PRN (20:16)
[2019-01-14] MEDS: Morphine 4 MG/ML VIAL SLOW IVP PRN ×6 (01:09→20:57)
[2019-01-14] MEDS: Sodium Chloride 0.9% 1,000 ML IV SCH (02:00)
[2019-01-14] MEDS: HYDROcodone/Acetaminophen 10/325 mg Tablet PO PRN ×6 (03:29→23:12)
[2019-01-14] MEDS: Apixaban 5 MG TAB PO SCH ×2 (08:35→20:47)
[2019-01-14] MEDS: Spironolactone 25 MG TAB PO SCH (08:35)
[2019-01-14] MEDS: Amlodipine 10 MG TAB PO SCH (08:35)
[2019-01-14] MEDS: Gabapentin 300 MG CAP PO SCH ×3 (08:36→20:47)
[2019-01-14] MEDS: Famotidine 20 MG TAB PO SCH ×2 (08:36→20:47)
[2019-01-14] MEDS: Clopidogrel Bisulfate 75 MG TAB PO SCH (08:36)
[2019-01-14] MEDS: Folic Acid 1 MG TAB PO SCH (08:36)
[2019-01-14] MEDS: Finasteride 5 MG TAB PO SCH (08:36)
[2019-01-14] MEDS: Megestrol Acetate 800 MG/20 ML UDCUP PO SCH ×2 (08:37→20:47)
[2019-01-14] MEDS: Losartan 25 MG TAB PO SCH (08:37)
[2019-01-14] MEDS: Propranolol 10 MG TAB PO SCH ×3 (08:38→20:47)
[2019-01-14] MEDS: Tamsulosin HCl 0.4 MG CAP PO SCH (08:38)
[2019-01-14] MEDS ORDERED: predniSONE 20 MG TAB PO SCH (09:00)
[2019-01-14 12:09] LABS: Bartonella henselae IgG Negative titer (Neg:<1:320); Bartonella henselae IgM Negative titer (Neg:<1:100); Bartonella quintana IgG Negative titer (Neg:<1:320); Bartonella quintana IgM Negative titer (Neg:<1:100)
--- NOTE | 2019-01-14 13:47 | PDOC.PN ---
- Subjective Encounter Start Date: 01/14/19 Encounter Start Time: 13:46 Subjective: Feels about the same. Very weak but eating better -: fell on some bedding earlier w/o hitting his head -: at bedside and care discussed - Objective Resuscitation Status - Order Detail: 01/11/19 10:56 Resuscitation Status Routine Resuscitation Status: FULL: Full Resuscitation MAR Reviewed: Yes Vital Signs & Weight: Vital Signs (12 hours) Temp Pulse Resp BP BP BP Pulse Ox 01/14/19 13:18 98.0 F 84 18 148/71 H 95 01/14/19 10:16 98.2 F 71 16 117/59 L 97 01/14/19 08:56 98.1 F 75 18 123/68 96 01/14/19 08:35 68 179/90 H 01/14/19 08:00 98 Weight Admit Weight 147 lb 4 oz Weight 147 lb 4 oz I&O: 01/13/19 01/14/19 01/15/19 06:59 06:59 06:59 Intake Total 1650 2080 Output Total 1260 Balance 390 2080 Result Diagrams: 01/12/19 09:18 01/12/19 09:18 Additional Labs: Accuchecks 01/14/19 01/13/19 01/13/19 07:16 20:06 16:44 POC Glucose 96 236 H 181 H Microbiology 01/10/19 02:20 Nasal swab Influenza Types A,B Direct EIA - Final 01/10/19 01:29 Urine voided Urine Culture - Final NO GROWTH AT 36 HOURS 01/10/19 02:02 Venous blood - Left Arm Blood Culture - Preliminary NO GROWTH AT 48 HOURS 01/10/19 01:45 Venous blood - Right Arm Blood Culture - Preliminary NO GROWTH AT 48 HOURS Laboratory Tests 11/27/13 11/27/13 01/10/19 08:04 08:04 01:31 WBC 8.5 1.6 L Plt Count 178 54 L Alkaline Phosphatase 56 Iron TIBC % Saturation Total Bilirubin AST ALT Bartonella henselae IgG Bartonella henselae IgM Bartonella otoole IgG Bartonella otoole IgM 01/10/19 01/10/19 01/10/19 01:31 10:41 22:59 WBC Plt Count Alkaline Phosphatase 369 H Iron 30 L TIBC 229 L % Saturation 13 L Total Bilirubin 1.3 H AST 48 H ALT 23 Bartonella henselae IgG Negative Bartonella henselae IgM Negative Bartonella otoole IgG Negative Bartonella otoole IgM Negative 01/12/19 01/12/19 09:18 09:18 WBC 1.6 L Plt Count 61 L Alkaline Phosphatase 342 H Iron TIBC % Saturation Total Bilirubin 1.1 AST 34 ALT 19 Bartonella henselae IgG Bartonella henselae IgM Bartonella otoole IgG Bartonella otoole IgM Phys Exam - Physical Examination pale,cachectic HEENT: PERRLA, sclera anicteric, TM's clear, oral pharynx no lesions, 2+ tonsils dry mucosa.temporal muscle wasting Neck: no nodes, no JVD, supple, full ROM Respiratory: no wheezing, no rales, no rhonchi Cardiovascular: RRR, no significant murmur Gastrointestinal: soft, non-tender, no distention, positive bowel sounds Musculoskeletal: no edema, pulses present Neurological: non-focal, normal sensation, moves all 4 limbs Psychiatric: normal affect, A&O x 3 Skin: no rash Dx/Plan (1) Disseminated histoplasmosis Code(s): B39.9 - HISTOPLASMOSIS, UNSPECIFIED Status: Acute Comment: Positive DNA in plasma.Started on Ambisome on 01/13/19.ID following as well. (2) Pancytopenia Code(s): D61.818 - OTHER PANCYTOPENIA Status: Acute Comment: Unclear etiology. recent work up including BM Bx and liver Bx at [facility] unrevealing. ? Likely due to Disseminated Histoplasmosis involving liver and/or Bone Marro.Monitor counts closely.Pt also on OAC for Protein S deficiency (3) Severe protein-calorie malnutrition Code(s): E43 - UNSPECIFIED SEVERE PROTEIN-CALORIE MALNUTRITION Status: Acute Comment: Over the last few months.Likley due to Severe underlying illness leading to anorexia.on Megace.Ensure TID (4) Hepatosplenomegaly Code(s): R16.2 - HEPATOMEGALY WITH SPLENOMEGALY, NOT ELSEWHERE CLASSIFIED Status: Acute Comment: ? Etiology.? Histoplasmosis (5) Anorexia Code(s): R63.0 - ANOREXIA Status: Acute (6) Weight loss Status: Acute (7) PAD (peripheral artery disease) Code(s): I73.9 - PERIPHERAL VASCULAR DISEASE, UNSPECIFIED Status: Chronic Comment: continue plavix (8) Protein S deficiency Code(s): D68.59 - OTHER PRIMARY THROMBOPHILIA Status: Chronic Comment: With multiple arterial thromoses in the past requiring chronic anticoagulation and antiplatelet Rx (9) LFT elevation Code(s): R94.5 - ABNORMAL RESULTS OF LIVER FUNCTION STUDIES Status: Acute Comment: Monitor (10) Chronic anticoagulation Code(s): Z79.01 - MCFP (CURRENT) USE OF ANTICOAGULANTS Status: Chronic Comment: for protein S deficiency (11) Hepatitis C Code(s): B19.20 - UNSPECIFIED VIRAL HEPATITIS C WITHOUT HEPATIC COMA Status: Chronic Qualifiers: Viral hepatitis chronicity: unspecified Hepatic coma status: without hepatic coma Qualified Code(s): B19.20 - Unspecified viral hepatitis C without hepatic coma Plan: S/P RX as an OP (12) Iron deficiency Code(s): E61.1 - IRON DEFICIENCY Status: Acute (13) HTN (hypertension) Code(s): I10 - ESSENTIAL (PRIMARY) HYPERTENSION Status: Chronic Qualifiers: Hypertension type: essential hypertension Qualified Code(s): I10 - Essential (primary) hypertension Comment: Continue Inderal,Cozaar and amlodipine - Plan plan discussed w/ family, continue antibiotics, PT/OT, out of bed/ambulate, DVT proph w/SCDs HD stable.monitor labs and cont Ambisome for now. -: W/U Negative for Bartonella.Multiple other studies for infectious w/u pendi -: EBV titers also high.? signoficance.defer to ID -: DC IVF per pt request.encouraged to eat/drink orally -: supportive care. OT,PT.Fall precautions * . Review of Systems - Review of Systems Constitutional: weakness, malaise. negative: fever, chills, sweats, other Cardiovascular: negative: chest pain, palpitations, orthopnea, paroxysmal nocturnal dyspnea, edema, light headedness, other Gastrointestinal: Nausea Genitourinary: negative: Dysuria, Frequency, Incontinence, Hematuria, Retention , Other Musculoskeletal: negative: Neck Pain, Shoulder Pain, Arm Pain, Back Pain, Hand Pain, Leg Pain, Foot Pain, Other Neurological: negative: Weakness, Numbness, Incoordination, Change in Speech, Confusion, Seizures, Other - Medications/Allergies Allergies/Adverse Reactions: Allergies Allergy/AdvReac Type Severity Reaction Status Date / Time No Known Drug Allergies Allergy Verified 01/10/19 05:28 Medications: Current Medications Acetaminophen (Tylenol) 650 mg PO Q4H PRN PRN Reason: Headache/Fever/Mild Pain (1-3) Last Admin: 01/11/19 16:11 Dose: 650 mg Hydrocodone Bitart/Acetaminophen ([place] 10/325) 1 tab PO Q4H PRN PRN Reason: Moderate Pain (4-6) Last Admin: 01/12/19 15:01 Dose: 1 tab Hydrocodone Bitart/Acetaminophen ([place] 10/325) 2 tab PO Q4H PRN PRN Reason: Severe Pain (7-10) Last Admin: 01/14/19 11:08 Dose: 2 tab Albuterol/Ipratropium (Duoneb) 3 ml NEB [id number] PRN PRN Reason: SOB &/or Wheezing Last Admin: 01/10/19 21:19 Dose: 3 ml Amlodipine Besylate (Norvasc) 10 mg PO DAILY [facility] Last Admin: 01/14/19 08:35 Dose: 10 mg Apixaban (Eliquis) 5 mg PO BID [facility] Last Admin: 01/14/19 08:35 Dose: 5 mg Benzonatate (Tessalon) 100 mg PO Q6H PRN PRN Reason: Cough Clonidine (Catapres) 0.1 mg PO Q4H PRN PRN Reason: SBP >160 ____ Clopidogrel Bisulfate (Plavix) 75 mg PO DAILY [facility] Last Admin: 01/14/19 08:36 Dose: 75 mg Dextrose/Water (Dextrose 50%) 25 gm SLOW IVP PRN PRN PRN Reason: Hypoglycemia Famotidine (Pepcid) 20 mg PO BID [facility] Last Admin: 01/14/19 08:36 Dose: 20 mg Finasteride (Proscar) 5 mg PO DAILY [facility] Last Admin: 01/14/19 08:36 Dose: 5 mg Folic Acid (Folvite) 1 mg PO DAILY [facility] Last Admin: 01/14/19 08:36 Dose: 1 mg Gabapentin (Neurontin) 300 mg PO TID [facility] Last Admin: 01/14/19 08:36 Dose: 300 mg Glucagon (Glucagon) 1 mg IM PRN PRN PRN Reason: Hypoglycemia Guaifenesin (Robitussin Sf) 200 mg PO TID PRN PRN Reason: Cough Hydralazine HCl (Apresoline) 10 mg SLOW IVP Q4H PRN PRN Reason: SBP > 170 and HR < 70 Dextrose/Water (D5w) 1,000 mls @ 0 mls/hr IV .Q0M PRN PRN Reason: Hypoglycemia Amphotericin B 250 mg/ (Dextrose/Water) 250 mls @ 125 mls/hr IVPB Q24HR [facility] Last Admin: 01/13/19 14:51 Dose: 250 mls Miscellaneous Medication 1 (each/ Dextrose/Water) 10 mls @ 0 mls/hr FS Q24H [facility] Last Admin: 01/13/19 15:57 Dose: 10 mls Insulin Human Lispro (Humalog) 0 units SC .MILD SLIDING SCALE PRN PRN Reason: Mild Correctional Scale Last Admin: 01/12/19 16:00 Dose: 2 unit Insulin Human Lispro (Humalog) 0 units SC .BEDTIME SLIDING SC PRN PRN Reason: Bedtime Correctional Scale Last Admin: 01/13/19 20:16 Dose: 2 unit Losartan Potassium (Cozaar) 50 mg PO DAILY [facility] Last Admin: 01/14/19 08:37 Dose: 50 mg Megestrol Acetate (Megace) 400 mg PO BID [facility] Last Admin: 01/14/19 08:37 Dose: 400 mg Morphine Sulfate (Morphine) 4 mg SLOW IVP Q4H PRN PRN Reason: Breakthrough Pain Last Admin: 01/14/19 13:08 Dose: 4 mg Ondansetron HCl (Zofran) 4 mg IVP Q6H PRN PRN Reason: Nausea/Vomiting Pantoprazole Sodium (Protonix) 40 mg PO DAILY [facility] Last Admin: 01/14/19 08:37 Dose: 40 mg Polyethylene Glycol (Miralax) 17 gm PO DAILY PRN PRN Reason: Constipation Prednisone (Prednisone) 20 mg PO DAILY [facility] Last Admin: 01/14/19 08:37 Dose: 20 mg Propranolol HCl (Inderal) 10 mg PO TID [facility] Last Admin: 01/14/19 08:38 Dose: 10 mg Sertraline HCl (Zoloft) 50 mg PO DAILY [facility] Last Admin: 01/14/19 08:38 Dose: 50 mg Sodium Chloride ([place] Nasal [place] 0.65%) 0 ml EA NARE QIDPRN PRN PRN Reason: Nasal Congestion Sodium Chloride (Flush - Normal Saline) 10 ml IVF Q12HR [facility] Last Admin: 01/14/19 08:38 Dose: 10 ml Sodium Chloride (Flush - Normal Saline) 10 ml IVF PRN PRN PRN Reason: Saline Flush Last Admin: 01/11/19 04:08 Dose: 10 ml Spironolactone (Aldactone) 25 mg PO QAM[facility] Last Admin: 01/14/19 08:35 Dose: 25 mg Tamsulosin HCl (Flomax) 0.4 mg PO DAILY [facility] Last Admin: 01/14/19 08:38 Dose: 0.4 mg
[2019-01-14] MEDS: Admixture Fee 1 EACH in Dextrose 5% in Water 10 ML FS SCH ×2 (14:31→16:57)
[2019-01-14] MEDS: AMBISOME IVPB SCH (14:32)
[2019-01-14] MEDS: WATER IVPB SCH (14:32)
[2019-01-14] MEDS: DEXTROSE 5% IVPB SCH (14:32)
[2019-01-14] MEDS: HumaLOG 300 UNITS/3 ML VIAL SC PRN (17:09)
--- NOTE | 2019-01-14 17:16 | PRG ---
DATE OF SERVICE: 01/14/2019 SUBJECTIVE: Feels about the same. No major problems. No vomiting. Still anorectic. OBJECTIVE: VITAL SIGNS: He has been afebrile. HEENT: Ocular movements conjugate. LUNGS: Fairly clear breath sounds. CARDIAC: S1-S2 regular rate. ABDOMEN: Nontender. White cell count has not been repeated. Glucose 105, histoplasma antigen still pending. The results in the hospital database have to be updated with the latest information from [place]. ASSESSMENT AND DISCUSSION: 1. Peripheral vascular disease. 2. Protein S deficiency. 3. Chronic hep C treated and cured and then weight loss with evidence of chronic hepatitis. 4. Histiocytic infiltrates. 5. Bone marrow biopsy with trilineage hematopoiesis and splenomegaly and now histoplasma capsulatum DNA has been detected in plasma. The patient is on AmBisome. We will discontinue corticosteroids. Job ID: [id number]
[2019-01-15] MEDS: Morphine 4 MG/ML VIAL SLOW IVP PRN ×6 (01:01→22:01)
[2019-01-15] MEDS: HYDROcodone/Acetaminophen 10/325 mg Tablet PO PRN ×4 (02:55→19:49)
[2019-01-15 03:16] LABS: #Lymphocytes 0.5 thou/uL (1.20-3.40); #Monocytes 0.2 thou/uL (0.11-0.59); #Neutrophils 1.4 thou/uL (1.40-6.50); %Eosinophils 0.1 % (0.0-10.0); %Lymphocytes 23.6 % (21.0-51.0); %Monocytes 7.6 % (0.0-10.0); %Neutrophils 68.7 % (42.0-75.0); Hemoglobin 10.9 g/dL (14.0-18.0); Mean Corpuscular HGB CONC 32.5 g/dL (32.0-36.0); Mean Corpuscular Hemoglobin 27.5 pg (27.0-31.0); Mean Corpuscular Volume 84.6 fL (78.0-98.0); Mean Platelet Volume 9.2 fL (7.4-10.4); Platelet Count 52 thou/uL (130-400); RBC Distribution Width 16.9 % (11.5-14.5); Red Blood Cell (RBC) Count 3.97 mill/uL (4.70-6.10)
[2019-01-15 03:39] LABS: ALT (SGPT) 21 U/L (8-55); AST (SGOT) 25 U/L (5-34); Alkaline Phosphatase 265 U/L (40-150); Anion Gap 11 mmol/L (10-20); BUN (Urea Nitrogen) 14 mg/dL (8.4-25.7); Bilirubin, Total 1.1 mg/dL (0.2-1.2); Calc. Creatinine Clearance 95 mL/min (70-130); Calcium 8.7 mg/dL (7.8-10.44); Carbon Dioxide 26 mmol/L (23-31); Chloride 104 mmol/L (98-107); Estimated GFR-MDRD Greater than 90; Globulin 2.6 g/dL (2.4-3.5); Glucose 105 mg/dL (80-115); Magnesium 1.5 mg/dL (1.6-2.6); Phosphorus 3.6 mg/dL (2.3-4.7); Potassium 4.2 mmol/L (3.5-5.1); Protein, Total 5.6 g/dL (5.8-8.1); Sodium 137 mmol/L (136-145)
[2019-01-15] MEDS: Apixaban 5 MG TAB PO SCH ×2 (08:55→22:00)
[2019-01-15] MEDS: Spironolactone 25 MG TAB PO SCH (08:55)
[2019-01-15] MEDS: Amlodipine 10 MG TAB PO SCH (08:55)
[2019-01-15] MEDS: Folic Acid 1 MG TAB PO SCH (08:56)
[2019-01-15] MEDS: Clopidogrel Bisulfate 75 MG TAB PO SCH (08:56)
[2019-01-15] MEDS: Famotidine 20 MG TAB PO SCH ×2 (08:56→22:01)
[2019-01-15] MEDS: Gabapentin 300 MG CAP PO SCH ×3 (08:56→22:01)
[2019-01-15] MEDS: Megestrol Acetate 800 MG/20 ML UDCUP PO SCH ×2 (08:57→22:00)
[2019-01-15] MEDS: Losartan 25 MG TAB PO SCH (08:57)
[2019-01-15] MEDS: Propranolol 10 MG TAB PO SCH ×3 (08:57→22:01)
[2019-01-15] MEDS: Tamsulosin HCl 0.4 MG CAP PO SCH (08:58)
[2019-01-15] MEDS: Finasteride 5 MG TAB PO SCH (10:06)
[2019-01-15] MEDS: Admixture Fee 1 EACH in Dextrose 5% in Water 10 ML FS SCH ×2 (14:24→16:51)
[2019-01-15] MEDS: WATER IVPB SCH (14:25)
[2019-01-15] MEDS: AMBISOME IVPB SCH (14:25)
[2019-01-15] MEDS: DEXTROSE 5% IVPB SCH (14:25)
[2019-01-15 15:12] LABS: Brucella IgM Ab Negative (Negative)
--- NOTE | 2019-01-15 16:00 | PRG ---
DATE OF SERVICE: 01/15/2019 SUBJECTIVE: Feeling about the same. OBJECTIVE: VITAL SIGNS: He has been afebrile throughout. Blood pressure 130/ 77 and pulse 76. GENERAL: Awake, alert, and oriented. LUNGS: Symmetric. Clear breath sounds. HEART: S1 and S2, regular rate. ABDOMEN: Soft with no tenderness at this time. LABORATORY DATA: White cell count is 2000, hemoglobin 10.9, platelets 52,000, and 68% neutrophils. Sodium 137, creatinine 0.68, magnesium 1.5, alkaline phosphatase 265, and albumin 3.0. The urine histoplasma antigen was less than 0.53. Brucella and Bartonella were negative. We have the Karius test with detectable, but in small quantities of histoplasma capsulatum DNA in the plasma. ASSESSMENT AND DISCUSSION: Peripheral vascular disease; protein S deficiency; chronic hep C, treated and cured now with weight loss, evidence of chronic hepatitis; portal hypertension; hypersplenism, and peripheral destruction of the red and white cells and platelets with trilinear hematopoiesis and now histoplasma DNA sequences detected in the plasma by the Karius test. The EBV was detected as well and it is not clear to me the significance of this histoplasma genomic element in his plasma, it should not be there and so I think we are forced to treat this finding with AmBisome and then transition to itraconazole. 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 We are waiting the pathology review from the liver biopsy done at the [facility] Job ID: [id number] [facility]
--- NOTE | 2019-01-15 19:45 | PDOC.PN ---
- Subjective Encounter Start Date: 01/15/19 Encounter Start Time: 19:30 Subjective: f/u for Histoplasmosis and EBV on current Ambisome IV. Feels slightly -: better but still weak. Marginal improvement in appetite on Megace. -: Ambulating short distances with RW. - Objective Resuscitation Status - Order Detail: 01/11/19 10:56 Resuscitation Status Routine Resuscitation Status: FULL: Full Resuscitation MAR Reviewed: Yes Vital Signs & Weight: Vital Signs (12 hours) Temp Pulse Pulse Resp BP BP BP 01/15/19 19:17 99.3 F 77 16 129/63 01/15/19 16:45 98.6 F 75 16 116/60 01/15/19 13:05 69 134/76 01/15/19 12:56 98.4 F 76 16 114/70 01/15/19 08:55 69 134/77 01/15/19 08:00 98.2 F 69 16 134/77 Pulse Ox Pulse Ox 01/15/19 19:17 93 L 01/15/19 16:45 93 L 01/15/19 13:05 96 01/15/19 12:56 95 01/15/19 08:55 01/15/19 08:00 96 Weight Admit Weight 147 lb 4 oz Weight 147 lb 4 oz I&O: 01/14/19 01/15/19 01/16/19 06:59 06:59 06:59 Intake Total 2080 990 990 Output Total 225 Balance 2080 765 990 Result Diagrams: 01/15/19 03:00 01/15/19 03:00 Additional Labs: Accuchecks 01/15/19 01/15/19 01/14/19 16:29 11:05 19:30 POC Glucose 127 H 137 H 160 H Microbiology 01/10/19 02:20 Nasal swab Influenza Types A,B Direct EIA - Final 01/10/19 02:02 Venous blood - Left Arm Blood Culture - Final NO GROWTH IN 5 DAYS 01/10/19 01:45 Venous blood - Right Arm Blood Culture - Final NO GROWTH IN 5 DAYS 01/10/19 01:29 Urine voided Urine Culture - Final NO GROWTH AT 36 HOURS Laboratory Tests 01/10/19 01/10/19 01/10/19 01:31 10:41 10:41 WBC 1.6 L Plt Count 54 L Magnesium Iron 30 L Ferritin 153.56 01/12/19 01/15/19 09:18 03:00 WBC 1.6 L Plt Count 61 L Magnesium 1.5 L Iron Ferritin Phys Exam - Physical Examination Constitutional: NAD alert, cachetic, responds to questions HEENT: PERRLA, sclera anicteric, oral pharynx no lesions Neck: no nodes, no JVD, supple, full ROM Respiratory: no wheezing, no rales, no rhonchi, clear to auscultation bilateral S1, S2 Cardiovascular: RRR, no significant murmur, no rub, gallop distended Gastrointestinal: soft, positive bowel sounds Musculoskeletal: no edema, pulses present Neurological: normal sensation, moves all 4 limbs Psychiatric: A&O x 3 Skin: normal turgor, cap refill <2 seconds Dx/Plan (1) Disseminated histoplasmosis Code(s): B39.9 - HISTOPLASMOSIS, UNSPECIFIED Status: Acute Comment: Positive DNA in plasma.Started on Ambisome on 01/13/19, continue IV Ambisome (2) Anorexia Code(s): R63.0 - ANOREXIA Status: Chronic Comment: Continue Megace 400mg BID (3) Pancytopenia Code(s): D61.818 - OTHER PANCYTOPENIA Status: Acute Comment: Unclear etiology. recent work up including BM Bx and liver Bx at [facility] unrevealing. ? Likely due to Disseminated Histoplasmosis involving liver and/or Bone Marro.Monitor counts closely.Pt also on OAC for Protein S deficiency (4) Severe protein-calorie malnutrition Code(s): E43 - UNSPECIFIED SEVERE PROTEIN-CALORIE MALNUTRITION Status: Acute Comment: Over the last few months.Likley due to Severe underlying illness leading to anorexia.on Megace.Ensure TID (5) Hepatitis C Code(s): B19.20 - UNSPECIFIED VIRAL HEPATITIS C WITHOUT HEPATIC COMA Status: Chronic Qualifiers: Viral hepatitis chronicity: unspecified Hepatic coma status: without hepatic coma Qualified Code(s): B19.20 - Unspecified viral hepatitis C without hepatic coma Comment: Apparently tx (6) Protein S deficiency Code(s): D68.59 - OTHER PRIMARY THROMBOPHILIA Status: Chronic Comment: With multiple arterial thromoses in the past requiring chronic anticoagulation and antiplatelet Rx, continue Eliquis/Plavix - Plan plan discussed w/ family, continue antibiotics, PT/OT, psychotherapist social worker, out of bed/ambulate, DVT proph w/SCDs Stable currently -: Continue Ambisome IV -: Continue Megace 400mg BID -: OOB/PT for mobilization -: Likely will need SNF vs with PT * .
[2019-01-16] MEDS: HYDROcodone/Acetaminophen 10/325 mg Tablet PO PRN ×4 (00:38→23:48)
[2019-01-16] MEDS: Morphine 4 MG/ML VIAL SLOW IVP PRN ×5 (04:19→21:46)
[2019-01-16] MEDS: Losartan 25 MG TAB PO SCH (08:59)
[2019-01-16] MEDS: Famotidine 20 MG TAB PO SCH ×2 (09:00→20:22)
[2019-01-16] MEDS: Amlodipine 10 MG TAB PO SCH (09:00)
[2019-01-16] MEDS: Gabapentin 300 MG CAP PO SCH ×3 (09:00→20:22)
[2019-01-16] MEDS: Spironolactone 25 MG TAB PO SCH (09:00)
[2019-01-16] MEDS: Finasteride 5 MG TAB PO SCH (09:00)
[2019-01-16] MEDS: Propranolol 10 MG TAB PO SCH ×3 (09:00→20:22)
[2019-01-16] MEDS: Tamsulosin HCl 0.4 MG CAP PO SCH (09:00)
[2019-01-16] MEDS: Folic Acid 1 MG TAB PO SCH (09:00)
[2019-01-16] MEDS: Megestrol Acetate 800 MG/20 ML UDCUP PO SCH ×2 (09:01→22:16)
[2019-01-16] MEDS: Apixaban 5 MG TAB PO SCH ×2 (10:19→20:23)
[2019-01-16] MEDS: Clopidogrel Bisulfate 75 MG TAB PO SCH (10:20)
[2019-01-16] MEDS: WATER IVPB SCH (15:03)
[2019-01-16] MEDS: DEXTROSE 5% IVPB SCH (15:03)
[2019-01-16] MEDS: AMBISOME IVPB SCH (15:03)
[2019-01-16] MEDS: Admixture Fee 1 EACH in Dextrose 5% in Water 10 ML FS SCH ×2 (15:04→17:33)
--- NOTE | 2019-01-16 17:59 | PDOC.PN ---
- Subjective Encounter Start Date: 01/16/19 Encounter Start Time: 17:55 Subjective: f/u for Histoplasmosis and EBV on current Ambisome. c/o generalized -: pain improved with [place] and Gabapentin. - Objective Resuscitation Status - Order Detail: 01/11/19 10:56 Resuscitation Status Routine Resuscitation Status: FULL: Full Resuscitation MAR Reviewed: Yes Vital Signs & Weight: Vital Signs (12 hours) Temp Pulse Resp BP Pulse Ox 01/16/19 09:00 83 01/16/19 08:00 98.3 F 83 18 128/67 97 Weight Admit Weight 147 lb 4 oz Weight 147 lb 4 oz I&O: 01/15/19 01/16/19 01/17/19 06:59 06:59 06:59 Intake Total 990 1230 1690 Output Total 225 200 Balance 765 1030 1690 Result Diagrams: 01/15/19 03:00 01/15/19 03:00 Additional Labs: Accuchecks 01/16/19 01/16/19 01/15/19 11:22 05:53 19:15 POC Glucose 142 H 108 122 H Microbiology 01/10/19 02:20 Nasal swab Influenza Types A,B Direct EIA - Final 01/10/19 02:02 Venous blood - Left Arm Blood Culture - Final NO GROWTH IN 5 DAYS 01/10/19 01:45 Venous blood - Right Arm Blood Culture - Final NO GROWTH IN 5 DAYS 01/10/19 01:29 Urine voided Urine Culture - Final NO GROWTH AT 36 HOURS Laboratory Tests 01/10/19 01/10/19 01/10/19 01:31 10:41 10:41 WBC 1.6 L Plt Count 54 L Magnesium Iron 30 L Ferritin 153.56 01/12/19 01/15/19 09:18 03:00 WBC 1.6 L Plt Count 61 L Magnesium 1.5 L Iron Ferritin Phys Exam - Physical Examination Constitutional: NAD frail appearing, alert HEENT: PERRLA, sclera anicteric, oral pharynx no lesions Neck: no nodes, no JVD, supple, full ROM Respiratory: no wheezing, no rales, no rhonchi, clear to auscultation bilateral S1, S2 Cardiovascular: RRR, no significant murmur, no rub, gallop mild distention Gastrointestinal: soft, non-tender, positive bowel sounds Musculoskeletal: no edema, pulses present Neurological: normal sensation, moves all 4 limbs Psychiatric: A&O x 3 Skin: normal turgor, cap refill <2 seconds Dx/Plan (1) Disseminated histoplasmosis Code(s): B39.9 - HISTOPLASMOSIS, UNSPECIFIED Status: Acute Comment: Positive DNA in plasma.Started on Ambisome on 01/13/19, continue IV Ambisome (2) Anorexia Code(s): R63.0 - ANOREXIA Status: Chronic Comment: Continue Megace 400mg BID (3) Pancytopenia Code(s): D61.818 - OTHER PANCYTOPENIA Status: Acute Comment: Unclear etiology. recent work up including BM Bx and liver Bx at [facility] unrevealing. ? Likely due to Disseminated Histoplasmosis involving liver and/or Bone Marro.Monitor counts closely.Pt also on OAC for Protein S deficiency (4) Severe protein-calorie malnutrition Code(s): E43 - UNSPECIFIED SEVERE PROTEIN-CALORIE MALNUTRITION Status: Acute Comment: Over the last few months.Likley due to Severe underlying illness leading to anorexia.on Megace.Ensure TID (5) Hepatitis C Code(s): B19.20 - UNSPECIFIED VIRAL HEPATITIS C WITHOUT HEPATIC COMA Status: Chronic Qualifiers: Viral hepatitis chronicity: unspecified Hepatic coma status: without hepatic coma Qualified Code(s): B19.20 - Unspecified viral hepatitis C without hepatic coma Comment: Apparently tx (6) Protein S deficiency Code(s): D68.59 - OTHER PRIMARY THROMBOPHILIA Status: Chronic Comment: With multiple arterial thromoses in the past requiring chronic anticoagulation and antiplatelet Rx, continue Eliquis/Plavix - Plan plan discussed w/ family, continue antibiotics, PT/OT, social sciences research scientist, out of bed/ambulate, DVT proph w/SCDs Stable currently -: Continue Ambisome IV -: Continue Eliquis/Plavix -: Continue Megace for appetite stimulant -: PT/OT for ambulation * Rehab screening
[2019-01-17] MEDS: Morphine 4 MG/ML VIAL SLOW IVP PRN ×5 (02:21→19:51)
[2019-01-17] MEDS ORDERED: Morphine 2 MG/ML SYRINGE SLOW IVP SCH (04:15)
[2019-01-17] MEDS: HYDROcodone/Acetaminophen 10/325 mg Tablet PO PRN ×3 (04:35→22:08)
[2019-01-17] MEDS: Losartan 25 MG TAB PO SCH (09:39)
[2019-01-17] MEDS: Apixaban 5 MG TAB PO SCH ×2 (09:39→22:07)
[2019-01-17] MEDS: Propranolol 10 MG TAB PO SCH ×3 (09:39→22:07)
[2019-01-17] MEDS: Clopidogrel Bisulfate 75 MG TAB PO SCH (09:39)
[2019-01-17] MEDS: Finasteride 5 MG TAB PO SCH (09:40)
[2019-01-17] MEDS: Gabapentin 300 MG CAP PO SCH ×3 (09:40→22:07)
[2019-01-17] MEDS: Megestrol Acetate 800 MG/20 ML UDCUP PO SCH ×2 (09:40→22:07)
[2019-01-17] MEDS: Tamsulosin HCl 0.4 MG CAP PO SCH (09:40)
[2019-01-17] MEDS: Spironolactone 25 MG TAB PO SCH (09:40)
[2019-01-17] MEDS: Folic Acid 1 MG TAB PO SCH (09:40)
[2019-01-17] MEDS: Famotidine 20 MG TAB PO SCH ×2 (09:40→22:07)
[2019-01-17] MEDS: Amlodipine 10 MG TAB PO SCH (09:40)
--- NOTE | 2019-01-17 11:33 | PRG ---
DATE OF SERVICE: 01/17/2019 SUBJECTIVE: The patient is feeling about the same. He is seen eating a little better. No vomiting. No diarrhea. OBJECTIVE: VITAL SIGNS: T-max 98.4, blood pressure 130/70, pulse 74, respirations 16, and O2 saturation 95%. GENERAL: Awake and alert. LUNGS: Clear. HEART: S1 and S2. Regular rate. ABDOMEN: Soft, not distended or tender. LABORATORY DATA: White cell count is at 2.0 from 2 days ago, hemoglobin 10.9, and platelets 52,000. Creatinine 0.68. The histoplasma antigen in urine was negative. The EBV, DNA, and PCR were positive, but not quantitated. IMPRESSION AND PLAN: I have discussed the case with Dr. Jorden House in [facility], where the liver biopsy specimen was sent for a second opinion. He wanted to get a titer of his Jose-Soto virus and DNA in the blood. He is considering the possibility of EBV associated lymphoproliferative syndrome. He is doing some further staining for EBV in the liver as well as for T-cell monoclonal expression in the liver. Once we have the results, then we will make a decision if we should continue with histoplasmosis treatment or if this is to be managed as an EBV associated lymphoproliferative disorder. In view of the negative histoplasma antigen in urine and the findings in the liver biopsy and bone marrow biopsy, I am favoring the EBV hypothesis. Job ID: [id number]
[2019-01-17] MEDS: DEXTROSE 5% IVPB SCH (14:05)
[2019-01-17] MEDS: WATER IVPB SCH (14:05)
[2019-01-17] MEDS: Admixture Fee 1 EACH in Dextrose 5% in Water 10 ML FS SCH ×2 (14:05→15:29)
[2019-01-17] MEDS: AMBISOME IVPB SCH (14:05)
[2019-01-17 14:20] LABS: Ref Lab Test Ordered EBV PCR QUANT; Reference Lab Name LABCORP
--- NOTE | 2019-01-17 16:53 | PDOC.PN ---
- Subjective Encounter Start Date: 01/17/19 Encounter Start Time: 16:45 Subjective: f/u for suspected Histoplasmosis and EBV on Ambisome. Remains weak -: and appetite mildly improved. - Objective Resuscitation Status - Order Detail: 01/11/19 10:56 Resuscitation Status Routine Resuscitation Status: FULL: Full Resuscitation MAR Reviewed: Yes Vital Signs & Weight: Vital Signs (12 hours) Temp Pulse Resp BP Pulse Ox 01/17/19 09:40 74 01/17/19 08:00 98.4 F 74 16 138/78 95 Weight Admit Weight 147 lb 4 oz Weight 147 lb 4 oz I&O: 01/16/19 01/17/19 01/18/19 06:59 06:59 06:59 Intake Total 1230 1690 500 Output Total 200 Balance 1030 1690 500 Result Diagrams: 01/15/19 03:00 01/15/19 03:00 Additional Labs: Accuchecks 01/17/19 01/17/19 01/17/19 16:16 11:17 05:21 POC Glucose 127 H 135 H 124 H 01/16/19 01/16/19 20:07 16:03 POC Glucose 105 213 H Microbiology 01/10/19 02:20 Nasal swab Influenza Types A,B Direct EIA - Final 01/10/19 02:02 Venous blood - Left Arm Blood Culture - Final NO GROWTH IN 5 DAYS 01/10/19 01:45 Venous blood - Right Arm Blood Culture - Final NO GROWTH IN 5 DAYS 01/10/19 01:29 Urine voided Urine Culture - Final NO GROWTH AT 36 HOURS Laboratory Tests 01/10/19 01/10/19 01/10/19 01:31 10:41 10:41 WBC 1.6 L Plt Count 54 L Magnesium Iron 30 L Ferritin 153.56 01/12/19 01/15/19 09:18 03:00 WBC 1.6 L Plt Count 61 L Magnesium 1.5 L Iron Ferritin Phys Exam - Physical Examination cachetic, frail HEENT: PERRLA, sclera anicteric, oral pharynx no lesions Neck: no nodes, no JVD, supple, full ROM Respiratory: no wheezing, no rales, no rhonchi, clear to auscultation bilateral S1, S2 Cardiovascular: RRR, no significant murmur, no rub, gallop distended Gastrointestinal: soft, non-tender, positive bowel sounds generalized atrophy Musculoskeletal: no edema, pulses present Neurological: normal sensation, moves all 4 limbs Skin: normal turgor, cap refill <2 seconds Dx/Plan (1) Disseminated histoplasmosis Code(s): B39.9 - HISTOPLASMOSIS, UNSPECIFIED Status: Acute Comment: Positive DNA in plasma.Started on Ambisome on 01/13/19, continue IV Ambisome (2) Anorexia Code(s): R63.0 - ANOREXIA Status: Chronic Comment: Continue Megace 400mg BID (3) Pancytopenia Code(s): D61.818 - OTHER PANCYTOPENIA Status: Acute Comment: Unclear etiology. recent work up including BM Bx and liver Bx at [facility] unrevealing. ? Likely due to Disseminated Histoplasmosis involving liver and/or Bone Marro.Monitor counts closely.Pt also on OAC for Protein S deficiency (4) Severe protein-calorie malnutrition Code(s): E43 - UNSPECIFIED SEVERE PROTEIN-CALORIE MALNUTRITION Status: Acute Comment: Over the last few months.Likley due to Severe underlying illness leading to anorexia.on Megace.Ensure TID (5) Hepatitis C Code(s): B19.20 - UNSPECIFIED VIRAL HEPATITIS C WITHOUT HEPATIC COMA Status: Chronic Qualifiers: Viral hepatitis chronicity: unspecified Hepatic coma status: without hepatic coma Qualified Code(s): B19.20 - Unspecified viral hepatitis C without hepatic coma Comment: Apparently tx (6) Protein S deficiency Code(s): D68.59 - OTHER PRIMARY THROMBOPHILIA Status: Chronic Comment: With multiple arterial thromoses in the past requiring chronic anticoagulation and antiplatelet Rx, continue Eliquis/Plavix - Plan plan discussed w/ family, continue antibiotics, PT/OT, social services analyst, out of bed/ambulate, DVT proph w/SCDs Continue supportive mgmt -: Potential EBV lymphoproliferative disorder per ID -: PT for mobilization -: Palliative care -: Nutritional support with Glucerna TID * .
[2019-01-18] MEDS: Morphine 4 MG/ML VIAL SLOW IVP PRN ×6 (01:05→22:01)
[2019-01-18] MEDS: HYDROcodone/Acetaminophen 10/325 mg Tablet PO PRN ×4 (07:59→20:09)
[2019-01-18] MEDS: Spironolactone 25 MG TAB PO SCH (08:00)
[2019-01-18] MEDS: Clopidogrel Bisulfate 75 MG TAB PO SCH (09:32)
[2019-01-18] MEDS: Famotidine 20 MG TAB PO SCH ×2 (09:32→20:10)
[2019-01-18] MEDS: Finasteride 5 MG TAB PO SCH (09:32)
[2019-01-18] MEDS: Tamsulosin HCl 0.4 MG CAP PO SCH (09:32)
[2019-01-18] MEDS: Amlodipine 10 MG TAB PO SCH (09:32)
[2019-01-18] MEDS: Folic Acid 1 MG TAB PO SCH (09:32)
[2019-01-18] MEDS: Megestrol Acetate 800 MG/20 ML UDCUP PO SCH ×2 (09:33→20:07)
[2019-01-18] MEDS: Gabapentin 300 MG CAP PO SCH ×3 (09:33→20:10)
[2019-01-18] MEDS: Losartan 25 MG TAB PO SCH (09:33)
[2019-01-18] MEDS: Propranolol 10 MG TAB PO SCH ×3 (09:33→20:10)
[2019-01-18] MEDS: Apixaban 5 MG TAB PO SCH ×2 (09:33→20:10)
[2019-01-18 13:13] LABS: EBV Early Antigen (EA) IgG AB <9.0 U/mL (0.0-8.9); EBV VCA IgM <36.0 U/mL (0.0-35.9)
--- NOTE | 2019-01-18 15:33 | PDOC.PN ---
- Subjective Encounter Start Date: 01/18/19 Encounter Start Time: 15:30 Subjective: f/u for suspected Histoplasmosis and EBV on current Ambisome. -: Feels about the same. Weak but appetite improved. Ambulated -: with RW. - Objective Resuscitation Status - Order Detail: 01/11/19 10:56 Resuscitation Status Routine Resuscitation Status: FULL: Full Resuscitation MAR Reviewed: Yes Vital Signs & Weight: Vital Signs (12 hours) Temp Pulse Resp BP BP Pulse Ox 01/18/19 09:32 76 111/62 01/18/19 08:05 97.6 F 76 18 111/62 94 L 01/18/19 08:00 94 L Weight Admit Weight 147 lb 4 oz Weight 147 lb 4 oz I&O: 01/17/19 01/18/19 01/19/19 06:59 06:59 06:59 Intake Total 1690 1770 Balance 1690 1770 Result Diagrams: 01/15/19 03:00 01/15/19 03:00 Additional Labs: Accuchecks 01/18/19 01/18/19 01/17/19 11:04 05:22 20:03 POC Glucose 140 H 120 H 137 H 01/17/19 16:16 POC Glucose 127 H Microbiology 01/10/19 02:20 Nasal swab Influenza Types A,B Direct EIA - Final 01/10/19 02:02 Venous blood - Left Arm Blood Culture - Final NO GROWTH IN 5 DAYS 01/10/19 01:45 Venous blood - Right Arm Blood Culture - Final NO GROWTH IN 5 DAYS 01/10/19 01:29 Urine voided Urine Culture - Final NO GROWTH AT 36 HOURS Laboratory Tests 01/10/19 01/10/19 01/10/19 01:31 10:41 10:41 WBC 1.6 L Plt Count 54 L Magnesium Iron 30 L Ferritin 153.56 01/12/19 01/15/19 09:18 03:00 WBC 1.6 L Plt Count 61 L Magnesium 1.5 L Iron Ferritin Phys Exam - Physical Examination cachetic, frail, alert, responds to questions HEENT: PERRLA, sclera anicteric, oral pharynx no lesions Neck: no nodes, no JVD, supple, full ROM Respiratory: no wheezing, no rales, no rhonchi, clear to auscultation bilateral S1, S2 Cardiovascular: RRR, no significant murmur, no rub, gallop mild distention Gastrointestinal: soft, non-tender, positive bowel sounds generalized atrophy Musculoskeletal: no edema, pulses present Neurological: normal sensation, moves all 4 limbs Psychiatric: A&O x 3 Skin: normal turgor, cap refill <2 seconds Dx/Plan (1) Disseminated histoplasmosis Code(s): B39.9 - HISTOPLASMOSIS, UNSPECIFIED Status: Acute Comment: Positive DNA in plasma.Started on Ambisome on 01/13/19, continue IV Ambisome (2) Anorexia Code(s): R63.0 - ANOREXIA Status: Chronic Comment: Continue Megace 400mg BID (3) Pancytopenia Code(s): D61.818 - OTHER PANCYTOPENIA Status: Acute Comment: Unclear etiology. recent work up including BM Bx and liver Bx at [facility] unrevealing. ? Likely due to Disseminated Histoplasmosis involving liver and/or Bone Marro.Monitor counts closely.Pt also on OAC for Protein S deficiency (4) Severe protein-calorie malnutrition Code(s): E43 - UNSPECIFIED SEVERE PROTEIN-CALORIE MALNUTRITION Status: Acute Comment: Over the last few months.Likley due to Severe underlying illness leading to anorexia.on Megace.Ensure TID (5) Hepatitis C Code(s): B19.20 - UNSPECIFIED VIRAL HEPATITIS C WITHOUT HEPATIC COMA Status: Chronic Qualifiers: Viral hepatitis chronicity: unspecified Hepatic coma status: without hepatic coma Qualified Code(s): B19.20 - Unspecified viral hepatitis C without hepatic coma Comment: Apparently tx (6) Protein S deficiency Code(s): D68.59 - OTHER PRIMARY THROMBOPHILIA Status: Chronic Comment: With multiple arterial thromoses in the past requiring chronic anticoagulation and antiplatelet Rx, continue Eliquis/Plavix - Plan plan discussed w/ family, continue antibiotics, PT/OT, social service worker, out of bed/ambulate Stable currently -: Rehab screening -: Continue Ambisome IV -: Continue Megace -: OOB/PT * .
[2019-01-18] MEDS: Admixture Fee 1 EACH in Dextrose 5% in Water 10 ML FS SCH ×2 (16:03→16:05)
[2019-01-18] MEDS: AMBISOME IVPB SCH (16:13)
[2019-01-18] MEDS: WATER IVPB SCH (16:13)
[2019-01-18] MEDS: DEXTROSE 5% IVPB SCH (16:13)
[2019-01-19] MEDS ORDERED: Acetaminophen 650 MG Suppository PR PRN (00:43)
--- NOTE | 2019-01-19 01:48 | PDOC.EVN ---
Event Note - Event Note Event Note: Called by RN, pt has acute change in mental status , vitsl positive for fever 103.8 F, cxr showing some increased haziness on the right middle lobe, when compared with previous one, pt is pancytopenic, will cover with cefepime, Dr Loja already on the case, will follow rec's official read from cxr pending. blood cultures, ua/cult and labs ordered.
[2019-01-19 01:54] LABS: #Lymphocytes 0.3 thou/uL (1.20-3.40); #Monocytes 0.1 thou/uL (0.11-0.59); #Neutrophils 1.4 thou/uL (1.40-6.50); %Eosinophils 0.4 % (0.0-10.0); %Lymphocytes 18.3 % (21.0-51.0); %Monocytes 4.1 % (0.0-10.0); %Neutrophils 77.2 % (42.0-75.0); Hemoglobin 12.4 g/dL (14.0-18.0); Mean Corpuscular Hemoglobin 27.4 pg (27.0-31.0); Mean Corpuscular Volume 85.8 fL (78.0-98.0); Mean Platelet Volume 10.7 fL (7.4-10.4); Platelet Count 51 thou/uL (130-400); RBC Distribution Width 17.9 % (11.5-14.5); Red Blood Cell (RBC) Count 4.51 mill/uL (4.70-6.10); White Blood Cell (WBC) Count 1.8 thou/uL (4.8-10.8)
[2019-01-19] MEDS ORDERED: Cefepime 2 GM in Sodium Chloride 0.9% 100 ML IVPB SCH (02:00)
[2019-01-19 02:01] LABS: Lactic Acid 2.1 mmol/L (0.5-2.2)
[2019-01-19 02:07] LABS: ALT (SGPT) 30 U/L (8-55); AST (SGOT) 37 U/L (5-34); Albumin 3.1 g/dL (3.4-4.8); Alkaline Phosphatase 415 U/L (40-150); Anion Gap 13 mmol/L (10-20); BUN (Urea Nitrogen) 26 mg/dL (8.4-25.7); Bilirubin, Total 1.3 mg/dL (0.2-1.2); Calc. Creatinine Clearance 74 mL/min (70-130); Calcium 8.6 mg/dL (7.8-10.44); Carbon Dioxide 22 mmol/L (23-31); Chloride 104 mmol/L (98-107); Estimated GFR-MDRD 86; Globulin 2.7 g/dL (2.4-3.5); Glucose 127 mg/dL (80-115); Potassium 4.4 mmol/L (3.5-5.1); Protein, Total 5.8 g/dL (5.8-8.1); Sodium 135 mmol/L (136-145)
[2019-01-19] MEDS ORDERED: Vancomycin HCl 1 GM in Premix Bag 1 BAG IVPB SCH ×2 (03:00→05:00)
[2019-01-19] MEDS ORDERED: Magnesium Sulfate 3 GM in Sodium Chloride 0.9% 100 ML IVPB SCH (04:30)
[2019-01-19] MEDS ORDERED: Sodium Chloride 0.9% 1,000 ML IV SCH (04:30)
--- NOTE | 2019-01-19 04:47 | PDOC.EVN ---
Event Note - Event Note Event Note: Goals of care discussed with power of trust and estates attorney at bedside, they have stated that patients wishes were not to be put in life support that the patient has been declining for the past year being very sick and that he had stated a few days ago that he was tired of being this way, we will follow patient's expressed wishes to his and continue medical treatment, with a trial of bipap if needed and if patient allows us to do it, code status as discussed changed to DNR/DNI with possible change to comfort care if not responding to treatment.
[2019-01-19] MEDS: Morphine 4 MG/ML VIAL SLOW IVP PRN (08:25)
[2019-01-19] MEDS: Spironolactone 25 MG TAB PO SCH (08:52)
[2019-01-19] MEDS: Clopidogrel Bisulfate 75 MG TAB PO SCH (08:53)
[2019-01-19] MEDS: Amlodipine 10 MG TAB PO SCH (08:53)
[2019-01-19] MEDS: Apixaban 5 MG TAB PO SCH (08:53)
[2019-01-19] MEDS: Finasteride 5 MG TAB PO SCH (08:54)
[2019-01-19] MEDS: Gabapentin 300 MG CAP PO SCH (08:54)
[2019-01-19] MEDS: Folic Acid 1 MG TAB PO SCH (08:54)
[2019-01-19] MEDS: Famotidine 20 MG TAB PO SCH (08:54)
[2019-01-19] MEDS: Megestrol Acetate 800 MG/20 ML UDCUP PO SCH (08:54)
[2019-01-19] MEDS: Losartan 25 MG TAB PO SCH (08:54)
[2019-01-19] MEDS: Propranolol 10 MG TAB PO SCH (08:55)
[2019-01-19] MEDS: Tamsulosin HCl 0.4 MG CAP PO SCH (08:59)
[2019-01-19] MEDS ORDERED: Magnesium Oxide 400 MG TAB PO SCH (09:00)
--- NOTE | 2019-01-19 09:13 | CT ---
PRELIMINARY REPORT/[facility]/EMERGENCY AFTER HOURS PROCEDURE: EXAM: CT Head Without Contrast EXAM DATE/TIME: 01/19/2019 2:39 AM CLINICAL HISTORY: 68 years old, male; Signs and symptoms; Altered mental status/memory loss; Patient HX: New onset AMS. PT has fever 103.4. PT went from talking/interacting normally to barely responive in 2 hours. TECHNIQUE: Imaging protocol: Axial computed tomography images of the head/brain without contrast. COMPARISON: CT Brain WO Con 01/10/2019 3:00 AM FINDINGS: Brain: There is no evidence for acute stroke or bleed. There is global and diffuse parenchymal volume loss. There are scattered foci of decreased attenuation in the periventricular and subcortical white matter , nonspecific, but most consistent with chronic small vessel ischemic changes in patient of this age. Left occipital low attenuation focus noted on prior is unchanged and chronic in appearance. Ventricles / cisterns / extra-axial spaces: There is no hydrocephalus, midline shift, or acute extra-axial fluid collection. There is no sulcal e ffacement. Sinuses: No findings of acute sinusitis or suspicious sinus mass. Bone: No acute fracture or displacement. Impression: Chronic changes without evidence for acute, intracranial pathology. Thank you for allowing us to participate in the care of your patient. Dictated and Authenticated by: Mirna Cortez MD 01/19/2019 2:53 AM Central Time ([place] & [place]) FINAL REPORT EMERGENCY AFTER HOURS CT BRAIN PERFORMED WITHOUT CONTRAST ENHANCEMENT: Date: 01/19/19 HISTORY: Altered mental status. FINDINGS: There is mild ventricular and sulcal prominence, which is fairly age-appropriate. There are no signs of intracerebral hemorrhage or extra-axial fluid collections. Mastoid air cells and visualized sinuse s are clear. IMPRESSION: No acute intracranial abnormalities. This report is in agreement with the preliminary report issued by [facility].
[2019-01-19] MEDS ORDERED: Lorazepam 2 MG/ML VIAL SLOW IVP PRN (10:21)
--- NOTE | 2019-01-19 10:27 | RAD ---
PORTABLE CHEST: Date: 01/19/19 HISTORY: New onset of fever. COMPARISON: 01/10/19 study. FINDINGS: Heart size within normal limits. There are increasing right-sided parahilar lung markings as compared to the prior exam. Some of the changes in the right base are fairly similar. The left lung is essent ially clear. Minimal interstitial change in the left base. IMPRESSION: Developing right parahilar infiltrate. POS: C
--- NOTE | 2019-01-19 11:32 | CON ---
DATE OF CONSULTATION: 01/19/2019 SERVICE: Pulmonary medicine. REASON FOR CONSULT: ICU patient. HISTORY OF PRESENT ILLNESS: The patient is a 68-year-old white male, who has had rough go of it in the last 6 months. He has had a stepwise decline in function. He has gotten progressively weaker, and increasingly cachectic over this period of time. He is getting to the point where is essentially bound to a bed. He was doing really well yesterday. He is working with Physical Therapy, but overnight, he took a significant turn for the worse. His oxygen requirements went up, and chest x- ray showed a new infiltrate in the right upper lobe. His most recent workup has been detailed very well by Dr. Loja, who has been following him in the outpatient setting. Most recently, he had a biopsy of both the bone marrow and the liver. Both of these were possibly consistent with Jose-Soto, inflammatory changes. As such, we are considering initiating therapy for that. That being said, when he took this turn for the worse and came down to the ICU, the patient's and his brother both reaffirmed that he would like to be a DNI/DNR. Furthermore, they did not want any aggressive maneuvers moving forward and requested that we transition over to comfort care only. He cannot provide any additional elements of the history and he is currently encephalopathic. PAST MEDICAL HISTORY: 1. Coronary artery disease. 2. Peripheral vascular disease. 3. COPD. 4. History of pulmonary embolism. 5. Protein S deficiency. 6. History of tobacco abuse. 7. Hepatitis C, chronic, status post treatment. PAST SURGICAL HISTORY: 1. L2-L4 fusion. 2. IVC filter placement. 3. Femoral-popliteal bypass surgery. 4. Amputation of the small toe on the right foot. 5. Herniorrhaphy. 6. Percutaneous interventions including coronary arteries, peripheral lower extremity arteries, mesenteric arteries, and neck. SOCIAL HISTORY: Currently, negative for alcohol, tobacco, or illicit drug use. He currently has no exposures to chemicals, dust, asbestos, or tuberculosis. FAMILY HISTORY: Noncontributory. ALLERGIES: NO KNOWN DRUG ALLERGIES. MEDICATIONS: List of his inpatient medications were reviewed. All things were discontinued. We gave him comfort medications. REVIEW OF SYSTEMS: Cannot be obtained as the patient currently has encephalopathy. PHYSICAL EXAMINATION: VITAL SIGNS: Afebrile currently with a T-max overnight of 103.1. Pulse 93, blood pressure 70/45, respirations 25, and saturation 62% on 2 L nasal cannula. GENERAL: The patient is encephalopathic. He is hypersomnolent. HEENT: Normocephalic and atraumatic. Sclerae are white. Conjunctivae are pink. Oral mucosa is moist without lesions. LUNGS: Decreased air entry. Extensive rhonchi are present. There is a slightly prolonged expiratory phase, but I do not appreciate wheezing. HEART: Normal rate, regular. ABDOMEN: Soft, nontender, and nondistended. Bowel sounds are positive. MUSCULOSKELETAL: No cyanosis or clubbing. No pitting in bilateral lower extremities. NEUROLOGIC: Grossly nonfocal. LABORATORY DATA: Pancytopenia is present. Basic metabolic profile and liver function studies are otherwise unremarkable except for an alkaline phosphatase that is persistently elevated. Magnesium 1.3, glucose ranges from 50 to 114. B12 and folate were unremarkable previously. Urinalysis unremarkable. Jose-Soto virus serologies are abnormal. Bartonella is negative. Histoplasma is negative. Blood cultures x2, urine culture, influenza A and B are negative. IMAGING DATA: Demonstrates a new right upper lobe infiltrate. ASSESSMENT: 1. Failure to thrive. 2. Jose-Soto virus, disseminated, suspected. 3. Acute hypoxic respiratory failure. 4. Healthcare-associated pneumonia. 5. Chronic obstructive pulmonary disease with acute exacerbation. 6. Severe debility. 7. Peripheral vascular disease, horrendous. DISCUSSION AND PLAN: I had a conversation with the patient's and brother at bedside. It is clear to me that they are suggesting that the patient would not want additional aggressive interventions through time. They clearly said for a long period of time that he would be a DNI/DNR and would not want aggressive resuscitation maneuvers to occur. They do understand that if EBV is present, it could be treated and some of these other things could improve to a significant degree. That being said, they suggested that because of his decline here recently, in the way that he has felt recently, he would not want to try to get back to his previous quality of life that he experienced 6 months ago. They feel it would be in keeping with his wishes to transition over to comfort care only. They do understand that there is a possibility that he would have some reversible disease process here, but that would likely require mechanical intubation and broad-spectrum antibiotics in order to fix the issue. They do not want us to make that attempt. As such, we will transition over to comfort care only. All interventions will be interrupted and is expected during this hospital stay. We will move him out of the ICU to the medical unit. When he leaves the ICU, he will have no further requirements for inpatient Pulmonary/Critical Care opinion, and I will sign off. I will reach out to Dr. Loja to make certain he is aware of this change. 70 minutes have been devoted to this patient in various activities. I personally reviewed all imaging studies and laboratory data noted within this document. For fifty percent of this time, I was interacting with the patient at the bedside or coordinating care with the care team. For the remainder of the time I was immediately available to the patient in the hospital unit. Job ID: [id number] [id number]
[2019-01-19 12:57] VITALS: BP 78/48; TEMP 97.8
[2019-01-19] MEDS ORDERED: Morphine 2 MG/ML SYRINGE SLOW IVP PRN (13:15)
[2019-01-19] MEDS ORDERED: Scopolamine 1.5 mg/72 hour Patch TOP SCH (15:00)
--- NOTE | 2019-01-20 01:29 | DIS ---
DATE OF ADMISSION: 01/10/2019 DATE OF DISCHARGE: 01/19/2019 FINAL DIAGNOSES: 1. Sepsis secondary to #2. 2. Healthcare associated pneumonia, suspected gram-negative rods. 3. Toxic metabolic encephalopathy. 4. Disseminated Jose-Soto viral inflammatory process. 5. 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 6. Anorexia. 7. Severe protein-calorie malnutrition. 8. Pancytopenia, chronic. 9. History of hepatitis C. 10. Protein S deficiency, on chronic anticoagulation and anti-platelet therapy with Eliquis and Plavix. CONSULTATIONS: 1. Dr. Mingo Loja with Infectious Disease Service. 2. Dr. Mccormick with Medical Oncology Service. PERTINENT LAB AND X-RAY FINDINGS: Sodium ranged between 130 to 137, creatinine ranged between 0.59 to 0.88. Estimated GFR ranged between 86 to greater than 90. Lactic acid level ranged between 1.1 to 2.1. Magnesium level 1.3. Serum iron level 30, ferritin 154, vitamin B12 level 482, folate level 12.0. CBC showed a white blood cell count ranged between 1.6 to 2.0, hemoglobin ranged between 10.4 to 12.4, platelet count ranged between 51 to 61. Jose-Soto viral panel positive for capsid and nuclear IgG antibody. EBV DNA by PCR positive. Blood cultures x2 dated 01/10/2019 showed no growth at 5 days. Urine culture dated 01/10/2019 showed no growth at 36 hours. Influenza A and B antigen dated 01/10/2019, negative. CT of the brain without contrast dated 01/10/2019 showed no acute intracranial process. Portable chest x-ray dated 01/10/2019 showed increased parenchymal density in the right base concerning for atelectasis or scarring. Nuclear bone scan dated 01/11/2019 showed nonspecific solitary focus of increased activity in the posterior left 9th rib. Portable chest x-ray dated 01/19/2019 showed right perihilar infiltrate. CT of the brain without contrast dated 01/19/2019 showed no acute intracranial process. HOSPITAL COURSE: The patient was initially admitted after presenting with generalized weakness, anorexia, and falls. The patient with significant history of protein S deficiency, on chronic anticoagulation with Eliquis with multiple pulmonary emboli and arterial occlusions requiring multiple stents. The patient underwent extensive evaluation including screening metabolic workup showing evidence of histoplasmosis and Jose-Soto viral infection. The patient was evaluated by the Infectious Disease Service and initiated on AmBisome therapy intravenously. The patient underwent immunologic and DNA sequencing studies showing evidence of Jose-Soto viral infection. The patient continued on AmBisome therapy and general supportive measures during the hospital course. The patient was evaluated by the Hematology Service with recommendations for general supportive management and continuation of anticoagulation and anti-platelet therapy. The patient did show mild improvement in overall functional status and stabilized with consideration to inpatient rehabilitation for further physical and occupational therapy. The patient ambulated with a rolling walker with Physical Therapy Service and tolerated [id number] oral intake of his regular diet. The patient developed increased altered mental status and lethargy on 01/19/2019, prompting investigation to include chest imaging and CT of the brain. The patient was noted with right perihilar infiltrate concerning for healthcare-associated pneumonia. Due to patient's change in mental status and unstable vital signs including hypotension, the patient was transferred to the Critical Care Unit for further and aggressive intervention. The patient continued to clinically decline in the ICU at which point, discussions with the family regarding goals of care were initiated. The family stated the patient did not want heroic measures or life-sustaining procedures or intubation. The patient was transitioned to comfort care and transferred back to the Medical Oncology Unit, receiving morphine sulfate and general supportive care. The patient rapidly clinically declined and at 13:35 p.m. on 01/19/2019 with family at bedside. Decedent affairs were notified and no autopsy will be performed. Job ID: [id number]
== END 2019-01-19 13:35 | disposition expired | DRG 808 ==
LOC: ERS 00:42 → ONC 03:56 → OBSVTOIN 03:56 → CCU 01-19 03:04 → ONC 01-19 12:08
PROVIDERS: ADMIT Internal Medicine; ATTEND Internal Medicine
DX: D61.818 Other pancytopenia (principal); E43 Unspecified severe protein-calorie malnutrition; A41.9 Sepsis, unspecified organism; G92 Toxic encephalopathy; J15.6 Pneumonia due to other Gram-negative bacteria; J96.01 Acute respiratory failure with hypoxia; B39.3 Disseminated histoplasmosis capsulati; E87.1 Hypo-osmolality and hyponatremia; D68.59 Other primary thrombophilia; K76.6 Portal hypertension; J44.0 Chronic obstructive pulmonary disease with (acute) lower respiratory infection; Z51.5 Encounter for palliative care; Z66 Do not resuscitate; B27.00 Gammaherpesviral mononucleosis without complication; R29.6 Repeated falls; E11.9 Type 2 diabetes mellitus without complications; I10 Essential (primary) hypertension; I73.9 Peripheral vascular disease, unspecified; Y95 Nosocomial condition; E78.5 Hyperlipidemia, unspecified; M19.90 Unspecified osteoarthritis, unspecified site; Z68.21 Body mass index [BMI] 21.0-21.9, adult; F41.9 Anxiety disorder, unspecified; E61.1 Iron deficiency; I25.10 Atherosclerotic heart disease of native coronary artery without angina pectoris; F10.21 Alcohol dependence, in remission; F19.21 Other psychoactive substance dependence, in remission; Z79.01 Long term (current) use of anticoagulants; Z79.02 Long term (current) use of antithrombotics/antiplatelets; Z79.899 Other long term (current) drug therapy; Z95.5 Presence of coronary angioplasty implant and graft; Z86.711 Personal history of pulmonary embolism; Z95.820 Peripheral vascular angioplasty status with implants and grafts; Z88.8 Allergy status to other drugs, medicaments and biological substances; Z91.040 Latex allergy status; Z86.19 Personal history of other infectious and parasitic diseases; Z89.421 Acquired absence of other right toe(s)
CPT/HCPCS: 36415; 36416; 70450; 71045; 78306; 80053; 81003; 82607; 82728; 82746; 83540; 83550; 83605; 83735; 84100; 85025; 85060; 86611; 86622; 86663; 86664; 86665; 87040; 87086; 87385; 87798; 87804; 93005; 94640; 96374; A9503; J0289; J0692; J1644; J1756; J2060; J2270; J3010; J3370; J3475; J3490; J7050; J7070; J7512